=== PATIENT | female | born 1940 | race Caucasian/White ===

== ENCOUNTER 2016-04-26 13:25 | Inpatient (IN) | payer MEDICARE, OTHER ==
[~2016-04-26] VITALS: Ht 180.3 cm; Wt 83.4 kg
[~2016-04-26 13:25] MED LIST: METF-488 PO; METO25TA99 PO; NIAC500SA PO; VIT1CAPS23 PO; ZES10 PO
--- NOTE | 2016-04-26 13:34 | ED.REPORT ---
HPI-General Illness Date of Service Apr 26, 2016 ED Provider: Jewel Pacheco MD 76 year old female with a hx of DM, HTN and Afib presents to the ED weakness to the lower extremities. Today, the patient was too weak to transfer from her wheelchair to the toilet. Pt has been using a wheelchair due to L knee pain for 3 months. Pt has been given steroid shots with minimal improvement in sx. Her weakness was much more severe today. Pt is being seen at the wound center for a wound to her R foot. Pt denies CP, SOB, Fever, cough and vomiting. Pt denies any hx of Polymyalgia rheumatica and giant cell arteritis. Pt lives at home with her sister who is unable to assist with transferring. Nursing Notes Stated Complaint: WEAKNESS Nursing Notes Reviewed: Yes Allergies: Coded Allergies: Yjhysuh-Kxn-Ewd Reductase Inhibitor (Verified Allergy, Unknown, 12/21/13) meperidine HCl (Verified Allergy, Unknown, 12/21/13) Scheduled Lisinopril-Expunged Drug, Do Not Renew! (Lisinopril-Expunged Drug, Do Not Renew! ) 10 Mg Tablet 40 MG PO DAILY Metformin-Expunged Drug, Do Not Renew! (Metformin-Expunged Drug, Do Not Renew!) 1,000 Mg Tab.er.24 1,000 MG PO BID Metoprolol Succinate ER (Metoprolol Succinate ER) 25 Mg Tab.er.24h 25 MG PO BID NIACIN-Expunged Drug, Do Not Renew! (NiacinSR-Expunged Drug, Do Not Renew!) 500 Mg Tablet.sa 500 MG PO DAILY VIT C/VIT E ACETATE/LUTEIN/MIN-Expunged Drug, (OCUVITE LUTEIN-Expunged Drug, Do Not Renew!) 1 Each Capsule 1 EACH PO DAILY General Time Seen by MD: 13:33 Chief Complaint Weakness Hx Obtained From: Patient, EMS Arrived By: Ambulance Sudden in Onset?: No Onset Occurred: More than a week ago... Symptom Duration: Since onset Location: : Knee left: Knee right Quality: Painful Severity: Current: Severe Associated with: Reports: Weakness, Denies: Fever, Shortness of breath Past Medical History Past Medical History Reports: Cancer (skin), Diabetes mellitus, Hypertension Reports: Atrial fibrillation, Urinary tract infection Past Surgical History Skin cancer excision Hip Smoking History Never Smoker Social History Alcohol Use: Denies alcohol use Drug Use: Denies drug use Ambulatory Status Wheelchair Review of Systems Full Review of Systems Constitutional: Reports: Weakness - generalized, Denies: Chills, Fever Ears / Nose / Throat: Denies: Nasal congestion Respiratory: Denies: Non-productive cough, Shortness of breath Cardiovascular: Denies: Chest pain, Edema GI: Denies: Abdominal pain, Diarrhea, Vomiting Female: Denies: Dysuria Musculoskeletal: Reports: Joint pain Neurologic: Denies: Change LOC, Headache Complete sys rev & neg: except as marked. Physical Exam Vital Signs Vital Signs Date Time Temp Pulse Resp B/P Pulse Ox O2 Delivery O2 Flow Rate FiO2 04/26/16 17:40 36.8 58 20 138/57 100 Room Air 04/26/16 13:35 36.3 102 14 138/82 90 Room Air Initial VS: Reviewed Cardiovascular: No murmurs, Peripheral circulation NL Heart Rate / Rhythm: Positive: Irreg irregular rhythm, Tachycardia Lower Extremity / Pelvis / MS: Neurologic intact, Vascular intact Deformed knee bilat with bandages to bilat lower legs. Good ROM woth no redness or warmth to knees. Large open wound to the R medial lower leg with cellular debris, proud flesh and cellulitis above with warmth and erythema. -Ulcer to L achillis. No cellulitis but warmth around the wound. Interpretation & Diagnostics Lab Results Interpretation Result Diagram: 04/26/16 1450 04/26/16 1450 Test 04/26/16 13:45 04/26/16 14:50 04/26/16 16:00 Urine Color Yellow (YELLOW) Urine Appearance Clear (CLEAR,HAZY) Urine pH 5.5 (5.0-8.0) Urine Specific [place] 1.025 (1.003-1.035) Urine Protein 30mg/dL (NEG,TRACE) Urine Glucose (UA) 250mg/dL (NEGATIVE) Urine Ketones 15mg/dL (NEGATIVE) Urine Occult Blood Moderate (NEGATIVE) Urine Nitrite Negative (NEGATIVE) Urine Bilirubin Negative (NEGATIVE) Urine Urobilinogen Normalmg/dL (NORMAL) Urine Leukocyte Esterase Negative (NEGATIVE) Urine RBC 0-2/hpf (0-2) Urine WBC 0-5/hpf (0-5) Urine Epithelial Cells None/hpf (NONE-MOD) Urine Crystals Amorphous urates (NONE Urine Bacteria Few/hpf (NONE-FEW) Urine Hyaline Casts None/lpf (NONE) Urine Granular Casts None seen (NONE SEEN) Urine Waxy Casts None seen (NONE SEEN) Urine Red Blood Cell Casts None seen (NONE SEEN) Urine White Blood Cell Casts None seen (NONE SEEN) Urine Mucus Present (None Seen) Urine Trichomonas None seen (NONE SEEN) Urine Yeast None (NONE SEEN) Urinalysis Comment None Urine Culture Reflexed Not indicated White Blood Count 16.3th/mm3 (3.8-10.1) Red Blood Count 2.99mil/mm3 (3.90-5.20) Hemoglobin 8.5g/dL (12.0-15.6) Hematocrit 27.4% (35.0-46.0) Mean Corpuscular Volume 91.6fL (81-100) Mean Corpuscular Hemoglobin 28.4pg (27.0-35.0) Mean Corpuscular Hemoglobin Concent 31.0% (32.0-37.0) Red Cell Distribution Width 16.6% (12.3-15.4) Platelet Count 327bil/L (150-400) Neutrophils (%) (Auto) 91.6% (40-74) Lymphocytes (%) (Auto) 3.6% (14-46) Monocytes (%) (Auto) 4.2% (4-12) Eosinophils (%) (Auto) 0.1% (0-5) Basophils (%) (Auto) 0.2% (0-3) Erythrocyte Sedimentation Rate 66mm/hr (0-40) Sodium Level 140mEq/L (134-144) Potassium Level 5.2mEq/L (3.5-5.2) Chloride Level 107mEq/L (97-108) Carbon Dioxide Level 18mmol/L (18-29) Blood Urea Nitrogen 49mg/dL (8-27) Creatinine 1.16mg/dL (0.57-1.00) Estimat Glomerular Filtration Rate 65mL/min (>59) Glucose Level 322mg/dL (60-99) Calcium Level 9.4mg/dL (8.5-10.1) Total Bilirubin 0.5mg/dL (0.0-1.2) Aspartate Amino Transf (AST/SGOT) 15U/L (0-50) Alanine Aminotransferase (ALT/SGPT) 12U/L (0-32) Alkaline Phosphatase 65U/L (25-165) Total Protein 6.6g/dL (6.4-8.4) Albumin 3.2g/dL (3.4-5.0) Lactic Acid Level 1.4mmol/L (0.4-2.0) General Lab Results Interp 1: Labs reviewed X-Ray Chest Interpretation Chest Xray Interpretation: IMPRESSION: Cardiomegaly. No acute pulmonary findings. Dictated by: Inessa Beckman M.D. on 04/26/2016 at 14:39 View: Portable, 1 view Interpretation / Wet Read by: Interpret - Radiologist Re-Eval/Medical Decision Time of Eval: 15:34 Re-Evaluation/Progress Note: Pt updated of labs. Time of Eval: 17:00 Patient Status: Condition improved Re-Evaluation/Progress Note: Updated pt of labs and imaging results. Recommended admission. Pt understands and agrees with plan. All questions addressed. Consultation : Referral / Consult Name: Cleveland Mitchell MD Consulted With: Hospitalist Call Returned at: 17:28 Resident Care Aid: Will see patient, Agrees with eval, Agrees with plan, Accepts admit Counseled Regarding: Diagnosis, Lab results, Need for admission Discharge & Departure Primary Impression: Cellulitis Site of cellulitis: extremity Site of cellulitis of extremity: lower extremity Laterality: right Qualified Code: L03.115 - Cellulitis of right lower limb Additional Impression: Sepsis Sepsis type: sepsis due to unspecified organism Qualified Code: A41.9 - Sepsis, unspecified organism Disposition: ADMITTED TO HOSPITAL Discharge Condition All VS Reviewed: Yes Referrals: Evangelista Voss MD (PCP) Scribe Attestation Portions of this note were transcribed by Annabelle Marroquin. I, (Dr. Pacheco) personally performed the history, physical exam and medical decision-making; I reviewed and confirmed the accuracy of the information in the transcribed note. Signed by: Chavo Garcia 04/26/2016, [id number] copies to: Evangelista Voss MD, Kirk H MD Apr 26, 2016 13:34 Annabelle Marroquin Apr 26, 2016 13:41
[2016-04-26 13:35] VITALS: BP 138/82; PULSE 102; RESP 14; O2SAT 90
--- NOTE | 2016-04-26 14:41 | DRSVH ---
PROCEDURE: X-RAY CHEST ONE VIEW, PORTABLE ([id number]) INDICATIONS: weak TECHNIQUE: One view of the chest was acquired. COMPARISON: [facility], CT, ABD/PELVIS W/CON (PNL), 12/13/2012, 13:22. FINDINGS: Surgical changes and devices: None. Lungs and pleura: No pleural effusions or pneumothorax. Lungs are clear. Mediastinum: Mediastinal contours appear normal. There is dense calcification of the mitral valve. Heart size is mildly enlarged. Bones and chest wall: No suspicious bony lesions. Overlying soft tissues appear unremarkable. IMPRESSION: Cardiomegaly. No acute pulmonary findings. Dictated by: Inessa Beckman M.D. on 04/26/2016 at 14:39 Approved by: Inessa Beckman M.D. on 04/26/2016 at 14:39
[2016-04-26 15:06] LABS: APPEARANCE,URINE CLEAR (CLEAR,HAZY); COLOR,URINE YELLOW (YELLOW); OCCULT BLOOD,URINE MODERATE (NEGATIVE); PH,URINE 5.5 (5.0-8.0); UROBILINOGEN,URINE NORMAL (NORMAL)
[2016-04-26 15:14] LABS: BASOPHILS % (AUTO) 0.2 % (0-3); EOSINOPHILS % (AUTO) 0.1 % (0-5); MONOCYTES % (AUTO) 4.2 % (4-12); Mean Corpuscular Hemoglobin 28.4 pg (27.0-35.0); Mean Corpuscular Volume 91.6 fL (81-100); NEUTROPHILS % (AUTO) 91.6 % (40-74); Platelet Count 327 bil/L (150-400)
[2016-04-26 15:41] LABS: ERYTHROCYTE SEDIMENTATION RATE 66 mm/hr (0-40)
[2016-04-26] MEDS ORDERED: 0.9% Sodium Chloride 1,000 ML IV ONE (15:42)
[2016-04-26] MEDS ORDERED: Vancomycin Dose per Pharmacist XX ONE (16:35)
[2016-04-26] MEDS ORDERED: metroNIDAZOLE Inj 500 MG in IV Premix 1 EACH IV ONE (16:35)
[2016-04-26] MEDS ORDERED: Clindamycin Inj 900 MG in IV Premix 1 EACH IV ONE (16:35)
[2016-04-26] MEDS ORDERED: Vancomycin Inj 1,750 MG in Dextrose 5% 500 ML IV ONE (16:55)
[2016-04-26 17:40] VITALS: BP 138/57; PULSE 58; RESP 20; O2SAT 100
[2016-04-26] MEDS ORDERED: Polyethylene Glycol (PEG) 17 Gm Powder PO PRN (17:40)
[2016-04-26] MEDS ORDERED: Ondansetron 2 mg/mL 2 mL Inj IVPUSH PRN (17:40)
[2016-04-26 18:16] VITALS: BP 138/57; PULSE 58; RESP 20; O2SAT 100
--- NOTE | 2016-04-26 18:31 | PCM.HPMED ---
Subjective Date of Service Apr 26, 2016 Primary Provider: Admitting Physician: Cleveland Mitchell MD Primary Care Physician: Evangelista Voss MD Attending Physician: Cleveland Mitchell MD Admit Status: From the Emergency Department, 23-Hour Observation, Non-Telemetry Chief Complaint: Progressive weakness. Right leg wound infection. History of Present Illness: This is a pleasant 76-year-old female who presents with acute on chronic weakness. She was unable to get into the bathroom today. She got from the bed to her wheelchair but could not get from the wheelchair to the bathroom. She called medics. Ultimately she had to call in the second time. She notes that she has had progressive weakness for several weeks but today seems to cross the threshold. She was equally weak in both legs. No unilateral weakness or numbness. No difficulty speaking or other particular neurologic symptoms. She has had a chronic wound on the right pretibial region which she has been followed by wound clinic in [place]. She has had no fevers or chills. She does have increased redness around the wound today. There is some. She has had serial debridement and wound care. She also has an ulcer behind the left heel which is several weeks old but not read or getting worse. She denies fevers chills. No rhinorrhea cough or sore throat. No nausea vomiting or diarrhea. No shortness of breath. Review of Systems: No headache. No difficulty hearing or visual changes. She has chronic right eye blindness. No rhinorrhea. She denies orthopnea or pedal edema. No abdominal pain nausea vomiting. Normal appetite. Weight is stable. No anxiety or depression. No difficulty with urination or defecation. Also reviewed and otherwise negative except as noted in history of present illness. Allergies Coded Allergies: Tjvtfyw-Phj-Tqz Reductase Inhibitor (Verified Allergy, Unknown, 12/21/13) meperidine HCl (Verified Allergy, Unknown, 12/21/13) Home Medications Scheduled Lisinopril-Expunged Drug, Do Not Renew! (Lisinopril-Expunged Drug, Do Not Renew! ) 10 Mg Tablet 40 MG PO DAILY Metformin-Expunged Drug, Do Not Renew! (Metformin-Expunged Drug, Do Not Renew!) 1,000 Mg Tab.er.24 1,000 MG PO BID Metoprolol Succinate ER (Metoprolol Succinate ER) 25 Mg Tab.er.24h 25 MG PO BID NIACIN-Expunged Drug, Do Not Renew! (NiacinSR-Expunged Drug, Do Not Renew!) 500 Mg Tablet.sa 500 MG PO DAILY VIT C/VIT E ACETATE/LUTEIN/MIN-Expunged Drug, (OCUVITE LUTEIN-Expunged Drug, Do Not Renew!) 1 Each Capsule 1 EACH PO DAILY PMH 1. Essential hypertension. 2. Right leg wound being followed by wound care.. 3. Atrial fibrillation, on per DEXA. 4. Diabetes mellitus.2. 5. Lumbar spinal stenosis. 6. Right eye blindness. Family History Negative for diabetes Social History Hx Alcohol Use: No Hx Substance Use: No Smoking Status: Never Smoker Living Arrangement: with Family Exam Vital Signs Vital Sign - Last Date Time Temp Pulse Resp B/P Pulse Ox O2 Delivery O2 Flow Rate FiO2 04/26/16 18:16 36.8 58 20 138/57 100 Room Air Exam Alert oriented, no distress. Fluent speech. Normal skull. Normalexternal ears. Anicteric sclerae, symmetric pupils. Neck is supple, normal thyroid, no adenopathy Lungs are clear, normal effort. Heart is regular regular without murmur gallop or rub. Abdomen is soft nondistended focal tenderness guarding or rebound. Extremities are free of edema. Difficult to palpate pedal pulses. Normal cap refill in both feet. She has very large ulceration about 10 cm x 5 in the right holliday. There is some necrotic tissue there but no exposed bone. This is transcutaneous. The left heel has an ulceration about a centimeter in diameter over the Achilles heel. There is no associated redness. Joints are not swollen or deformed. Skin she does have surrounding erythema around the ulceration in the upper wound in the right holliday. Otherwise her skin is unremarkable My strength is 5 out of 5. No petechiae and ecchymosis or adenopathy is noted. Lab and Diagnostics Result Diagram: 04/26/16 1450 04/26/16 1450 Assessment & Plan 1. Probable cellulitis of the right lower extremity associated with a chronic ulcer which has some ongoing necrotic tissue and needs debridement. POA. We will swab the wound for culture and treat with empiric Zosyn. We will give 1 dose of vancomycin as well. We will also obtain wound care consult. 2. Diabetes mellitus 2. Will initially follow with before meals and bedtime blood sugars and cover with correctional lispro. 3. Essential hypertension. POA. Usual medications, follow clinically. 4. Atrial fibrillation, chronic. POA. Continue pradaxa Patient is admitted observation status with anticipated length of stay of one night. The patient is DO NOT RESUSCITATE this was confirmed with her personally today. Pain Evaluation: Adequate Pain Control Resuscitation Status: DNR/DNI:Do Not Resuscitate/Intubate Time spent 35 minutes Cleveland Mitchell MD Apr 26, 2016 18:31
--- NOTE | 2016-04-26 18:39 | NUR ---
Admission Patient arrived to floor with sister from ED at approx 1830. Multiple wounds noted to bilateral LE's and healing scab noted to left buttock (gluteal cleft). Oriented patient to room and hospital policies. Tele placed on patient. Afib with HR 110-140's. Continue frequent monitoring.
[2016-04-26 19:46] VITALS: BP 120/70; PULSE 91; RESP 20; O2SAT 99
[2016-04-26] MEDS: Piperacillin-Tazo 3.375 Gm Inj 3.375 GM in Dextrose 5% Minibag Plus 50 ML IV SCH (20:00)
[2016-04-26] MEDS ORDERED: CYAN100017 SL (20:44)
[2016-04-26] MEDS ORDERED: MV-M1TAB38 PO (20:44)
[2016-04-26] MEDS ORDERED: FERR325T6 PO (20:44)
[2016-04-26] MEDS ORDERED: Glucose 40% Oral Gel 15 Gm Tube PO PRN (20:55)
[2016-04-26] MEDS: MeTOProlol XL 25 mg ER24 Tablet PO SCH (22:10)
[2016-04-26] MEDS: Insulin LISPRO 300 Unit/3 mL Inj SUBQ SCH (22:10)
[2016-04-27] VITALS (7 sets, daily range): BP systolic 117–152; BP diastolic 69–84; PULSE 84–112; RESP 18–20; O2SAT 98–99
[2016-04-27] MEDS: HYDROcodone-APAP 5-325 mg Tablet PO PRN ×2 (01:11→21:41)
--- NOTE | 2016-04-27 05:14 | NUR ---
Wound dressing/Abx Pt denies episodes of chest pain, sob, n/v and abd discomfort. VSS, has been afebrile overnight. Pt have multiple wounds on bilateral LE. Cleaned pt's wound and provide wet-dry dressing to right leg with maceration and eschar formation. ABx administered as scheduled. Pt has been pleasant and cooperative with her care. Hourly rounding done and pt has slept most of the night. Addendum: 04/27/16 at 0615 by NADIA LARKIN RN 0610 pt had an episode of 6 beats v-tach. Assessed pt, denies chest pain or chest tightness.
[2016-04-27 06:43] LABS: BASOPHILS % (AUTO) 0.2 % (0-3); EOSINOPHILS % (AUTO) 1.1 % (0-5); MONOCYTES % (AUTO) 7.7 % (4-12); Mean Corpuscular Hemoglobin 27.9 pg (27.0-35.0); Mean Corpuscular Volume 90.6 fL (81-100); NEUTROPHILS % (AUTO) 82.7 % (40-74); Platelet Count 349 bil/L (150-400)
[2016-04-27] MEDS: Piperacillin-Tazo 3.375 Gm Inj 3.375 GM in Dextrose 5% Minibag Plus 50 ML IV SCH ×2 (08:17→20:27)
[2016-04-27] MEDS: MeTOProlol XL 25 mg ER24 Tablet PO SCH ×2 (08:17→20:27)
[2016-04-27] MEDS: Insulin LISPRO 300 Unit/3 mL Inj SUBQ SCH ×4 (08:31→21:41)
--- NOTE | 2016-04-27 10:31 | NUR ---
Case Management: OBS brochure provided and explained. CPerryRNCCM.
--- NOTE | 2016-04-27 16:02 | PCM.PNMED ---
Subjective Date of Service Apr 27, 2016 Subjective Patient reports continued weakness and fatigue. Pt denies any worsening of her symptoms, but does not note any improvement. Pt states that her lower extremity is very painful, and describes the pain as a burning, stinging sensation. Pt states that she has been seen at [facility] Exam Vital Signs Vital Sign - Last Date Time Temp Pulse Resp B/P Pulse Ox O2 Delivery O2 Flow Rate FiO2 04/27/16 13:55 94 04/27/16 13:28 37.6 18 117/75 99 Room Air Intake and Output 04/26/16 04/26/16 04/27/16 Cumulative From/Thru 15:00 23:00 07:00 04/26/16 13:35 - 04/27/16 02:08 Intake Total 120 ml 673 ml 793 ml Output Total 1 ml 1 ml Balance 119 ml 673 ml 792 ml Intake Oral 120 ml 120 ml IV Total 673 ml 673 ml Output Urine Total 1 ml 1 ml Exam General: No acute distress, well-developed, well-nourished, appropriately interactive HEENT: Normocephalic, atraumatic. Pupils equal, round, and reactive to light and accommodation. Anicteric sclerae, moist conjunctivae. Oropharynx with moist mucosa.Poor dentition Neck: Supple with full range of motion.No lymphadenopathy Cardiovascular: Regular rate and rhythm with no murmurs, rubs, or gallops appreciated Pulmonary: Clear to auscultation bilaterally with no crackles, wheezes, or rhonchi. Normal respiratory effort with no use of accessory muscles. Abdomen: Bowel tones present. Soft, nontender, nondistended. Extremities: Right anterior holliday with large area of ulceration, erythema and area of eschar.Wound is dry with no discharge or purulence. Area of erythema, tenderness to palpation and warmth on right lower extremity up to knee. Left heel with ulceration as well. Psychiatric: Normal mood and affect. Alert and oriented to person, place, and time. IVs and Medications Medications Reviewed: Medications were reviewed in detail Lab and Diagnostics Result Diagram: 04/27/1660504/27/16605 Assessment & Plan 76-year-old female who presented with chronic weakness found to have right lower extremity wounds and cellulitis Probable acute cellulitis of the right lower extremity associated with a chronic ulcer, present on admission, ongoing -Wound care has been consulted, pt is seen at [facility] in outpatient setting. -We have requested records from [facility] for microbiology and information regarding vasculature work up -No wound culture taken, as there is no discharge or purulence -Treating with Zosyn, and already received single dose of Vancomycin-not continuing this currently. Diabetes mellitus 2,present on admission, chronic and presumed stable. -Daily blood sugars -Low dose correction with Lispro -Continue to monitor -Diabetic diet Will initially follow with a CHF blood sugars in traction lispro. Essential hypertension,chronic, presumed stable. -Continue home medications -Continue to monitor. Atrial fibrillation, chronic, stable, present on admission -Continue with home dose of Pradaxa CODE STATUS DNR/DNI Resuscitation Status: DNR/DNI:Do Not Resuscitate/Intubate Time spent 25 minutes Attending Statement Patient seen and examined with resident. Agree with all attached documentation. Maritza Alcantara DO Apr 27, 2016 14:33 Cleveland Mitchell MD Apr 27, 2016 17:27
--- NOTE | 2016-04-27 17:15 | NUR ---
Wound Care Wound Evaluation orders received, pt seen at bedside. 76 year old female with a hx of DM, HTN and Afib presents to the ED weakness to the lower extremities. Admitted with cellulitis of right leg. Observation of right leg reveals erythema to below the knee, (this is outlined today). A dry medial calf ulcer 10 cm x 8 cm without drainage, wound bed nonviable dark chapman to yellowish tissue, no undermining or tunneling. Wound is cleaned but too dry to be worth culturing today. Foot is warm and capillary refill is diminished, Doppler of both feet reveal significantly diminished pulses at DP and [employer]ELOP[employer]. Lateral to this medial ulcer is a small lateral ulcer, 2 cm x 3 cm, it neither drains or tunnels or undermines. Both of these ulcers were treated with Calmoseptine to protect periwound skin, hydrogel, Aquacel Ag moist with saline, 4 x 4 gauze, Kerlix and surgilast. Left lateral inferior ankle presents with a chronic appearing ulcer 3 cm in diameter with rolled edges and a base of chapman slough, this wound was dressed identically to the right lower leg ulcers. My concern is that this may be a mixed etiology Venous/arterial wound, patient believes she has had studies at [facility] followed by Dr Layo Lopes of surgery there. I will recheck on this patient 04/28/16 and if wound base is improved can culture it at that time if necessary.
--- NOTE | 2016-04-27 21:05 | NUR ---
wound dressings patient has wound to right lower holliday medially. patient has been seeing wound care at [place] for same prior to admission. wound bed dry with eschar, redness around wound bed extending up calf with mild swelling. distal pulse palpable, but very weak. left lateral heel has a open wound, wound bed dry. distal pulses palpable but weak. sacrum red, skin intact but dry and flaky. History of prior pressure ulcer, per patient report. Wound consult following. patient denies pain or discomfort at would sites today. Q2 hour turning, encourage frequent position changes, pillows to float heels. continue to monitor.
[2016-04-28 05:17] VITALS: BP 134/91; PULSE 102; RESP 18; O2SAT 97
--- NOTE | 2016-04-28 06:00 | NUR ---
Leg pain Pt is alert and oriented, pleasant and cooperative with care but has been complaining of leg pain upon received by previous RN. Upon report, pt just received PRN pain meds. Instruct pt to wait for the meds to take effect. Pt verbalizes understanding and states that "it's starting to feel better now". Pt denies episodes of chest pain, sob, n/v and abd discomfort. Hourly rounding done and pt has slept most of the night. Addendum: 04/28/16 at 0649 by NADIA LARKIN RN MD notified of H&H levels. No new orders. Will pass on to next shift.
[2016-04-28 06:25] LABS: BASOPHILS % (AUTO) 0.2 % (0-3); MONOCYTES % (AUTO) 10.3 % (4-12); Mean Corpuscular Hemoglobin 28.1 pg (27.0-35.0); Mean Corpuscular Volume 90.8 fL (81-100); Platelet Count 335 bil/L (150-400)
[2016-04-28] MEDS: MeTOProlol XL 25 mg ER24 Tablet PO SCH ×2 (08:17→21:17)
[2016-04-28] MEDS: Insulin LISPRO 300 Unit/3 mL Inj SUBQ SCH ×4 (08:17→21:37)
[2016-04-28] MEDS: Piperacillin-Tazo 3.375 Gm Inj 3.375 GM in Dextrose 5% Minibag Plus 50 ML IV SCH ×2 (08:18→21:17)
--- NOTE | 2016-04-28 10:44 | NUR ---
Case Management: IMM explained, pt signed, placed in chart today at 10:20am. CperryRNCCM>
--- NOTE | 2016-04-28 10:51 | NUR ---
Social Work: Initial Assessment Data: Pt is a 76 y/o female admitted for cellulitis, sepsis. Pt's PCP is Dr Voss, pt's insurance is Medicare with [employer] dem[employer] supp. EMR reviewed. NARROW FABRIC LOOM FIXER met with pt at bedside, role explained. Pt states that she lives with her sister who is 2 years older than her in a single story home with a wheelchair ramp to enter. Pt states that her nephew listed at [facility] is also her DPOA and a good support to contact if needed. NARROW FABRIC LOOM FIXER requested a copy of DPOA paperwork for hospital. Pt states she does not drive, has no history with HH, has been to [facility] twice, and has no LTC or VA benefits. Pt is not a caregiver for another. NARROW FABRIC LOOM FIXER left SNF/HH choice list with pt. NARROW FABRIC LOOM FIXER text paged hospitalist requesting PT evaluation for pt if appropriate. NARROW FABRIC LOOM FIXER will continue to follow. Assessment: Pt who is independent at baseline. Pt in wheelchair at baseline. Plan: Pt will likely d/c home via POV with sister, JESSICA to R/O possible HH or SNF needs. JESSICA Callaway Addendum: 04/28/16 at 1054 by ALINE HIDALGO Amended: Links added.
--- NOTE | 2016-04-28 15:19 | PCM.PNMED ---
Subjective Date of Service Apr 28, 2016 Subjective Patient reports that she continues to feel very weak. Pt reports that 1 wk ago, she was able to ambulate with her walker, and was able to move in and out of bed. Pt reports that today she feels too weak. She reports she became significantly fatigued just sitting up on the side of the bed. Pt reports that her leg continues to cause her pain, however she does note improvement of her symptoms with the pain medication. Pt denies any fevers, chills, myalgias, shortness of breath or dysuria overnight. Exam Vital Signs Vital Sign - Last Date Time Temp Pulse Resp B/P Pulse Ox O2 Delivery O2 Flow Rate FiO2 04/28/16 05:17 36.9 102 18 134/91 97 Room Air Intake and Output 04/27/16 04/27/16 04/28/16 Cumulative From/Thru 15:00 23:00 07:00 04/26/16 13:35 - 04/28/16 05:16 Intake Total 100 ml 787 ml 500 ml 2180 ml Output Total 700 ml 75 ml 776 ml Balance -600 ml 712 ml 500 ml 1404 ml Intake Oral 100 ml 737 ml 500 ml 1457 ml IV Total 50 ml 723 ml Output Urine Total 700 ml 75 ml 776 ml # Voids 2 3 5 # Bowel Movements 1 0 1 Exam General: No acute distress, well-developed, well-nourished, appropriately interactive HEENT: Normocephalic, atraumatic. Pupils equal, round, and reactive to light and accommodation. Anicteric sclerae, moist conjunctivae. Oropharynx with moist mucosa.Poor dentition Neck: Supple with full range of motion.No lymphadenopathy Cardiovascular: Regular rate and rhythm with no murmurs, rubs, or gallops appreciated Pulmonary: Clear to auscultation bilaterally with no crackles, wheezes, or rhonchi. Normal respiratory effort with no use of accessory muscles. Abdomen: Bowel tones present. Soft, nontender, nondistended. Extremities: Right anterior holliday with large area of ulceration, erythema and area of eschar.Wound is dry with no discharge or purulence. Area of erythema, tenderness to palpation and warmth on right lower extremity up to knee. Left heel with ulceration as well. Psychiatric: Normal mood and affect. Alert and oriented to person, place, and time. IVs and Medications Medications Reviewed: Medications were reviewed in detail Lab and Diagnostics Result Diagram: 04/28/16 0545 04/28/16 0545 Microbiology Microbiology 04/26/16 Blood Culture - Preliminary, Resulted Positive Blood Culture Microbiology AGNELES CULTURE BLOOD Preliminary 04/28/16-0639 Organism 1 POSITIVE BLOOD CULTURE GRAM STAIN RESULT GRAM POSITIVE COCCI ?STAPH BC BOTTLE Isolated from Anaerobic Bottle of Set Drawn DATE CALLED: 04/27/16 TIME CALLED: 2008 CALLED BY: NOAH FLOOR/DOCTOR: ELEN PEREZ READ BACK YES TYPE OF DRAW PERIPHERAL DRAW TIME OF POSITIVITY 1934 STAPH, PROBABLE COAGULASE NEG ID pending ISOLATED FROM ONE OF FOUR BOTTLES COLLECTED 04/26 X-Rays, CTs and MRIs PROCEDURE: X-RAY CHEST ONE VIEW, PORTABLE FINDINGS: Surgical changes and devices: None. Lungs and pleura: No pleural effusions or pneumothorax. Lungs are clear. Mediastinum: Mediastinal contours appear normal. There is dense calcification of the mitral valve. Heart size is mildly enlarged. Bones and chest wall: No suspicious bony lesions. Overlying soft tissues appear unremarkable. IMPRESSION: Cardiomegaly. No acute pulmonary findings. Dictated by: Inessa Beckman M.D. on 04/26/2016 at 14:39 Approved by: Inessa Beckman M.D. on 04/26/2016 at 14:39 Assessment & Plan 76-year-old female who presented with chronic weakness found to have lower extremity wounds and cellulitis of the right lower extremity Probable acute cellulitis of the right lower extremity associated with a chronic ulcer, present on admission, ongoing -Pt is seen at [facility] in outpatient setting--Some records available and demonstrate positive wound culture of serratia liquefaciens 2015 -Wound care consulted, new dressing applied -No wound culture taken, as there is no discharge or purulence, if this changes , we will culture wound -Treating with Zosyn, and already received single dose of Vancomycin-not continuing this currently. -Blood cultures ( 1 of 4 bottles) growing gram positive cocci,coagulase negative. -Pt continues to have leukocytosis --WBC 14.3 -MRSA screen ordered Weakness, present on admission, ongoing -Pt reports she uses a walker at baseline, and can attend to her activities of daily living without assistance. -Physical therapy evaluation ordered -Continue to monitor -Pt will likely need Home Health Physical Therapy or Outpatient Physical Therapy Diabetes mellitus 2,present on admission, chronic and presumed stable. -Daily blood sugars -Low dose correction with Lispro -Continue to monitor -Diabetic diet Essential hypertension,chronic, presumed stable. -Continue home medications -Continue to monitor. Atrial fibrillation, chronic, stable, present on admission -Continue with home dose of Pradaxa Elevated creatinine, chronicity unknown, present on admission, ongoing -Will continue to monitor labs daily. Resuscitation Status: DNR/DNI:Do Not Resuscitate/Intubate Disposition: 1-2 days home with home health Pain Evaluation: Adequate Pain Control Resuscitation Status: DNR/DNI:Do Not Resuscitate/Intubate Attending Statement I reviewed this patients chart, discussed the plan of care with the resident and examined the patient. I agree with the above physical exam and assessment and plan. Maritza Alcantara DO Apr 28, 2016 14:11 Ayush Marroquin DO Apr 28, 2016 17:40
[2016-04-28 16:13] VITALS: BP 134/76; PULSE 85; RESP 18; O2SAT 100
--- NOTE | 2016-04-28 17:22 | NUR ---
Wound Care Patient seen for wound care and assessment today. Erythema decreased at right lower leg today. Able to debride wounds at bedside with #10 scalpel today. Wound at right medial leg cultured with swab after cleaning today. Redressed all wounds with Medihoney to assist debridement autolytically, 4x4 gauze and kerlix wrap and surgilast. Pt tolerated treatment very well. Will recheck on this patient 04/29.
--- NOTE | 2016-04-28 18:00 | NUR ---
Cellulitis Bilateral wraps on LEs. Pain tolerable and reducing to 0/10 this shift. elevated when in bed. Sitting upright on EOB for meals. Using bedpan to reduce pressure on bandaged feet. Pt reports comfort and is making needs known using call light.
[2016-04-28 21:16] VITALS: BP 122/67; PULSE 79; RESP 18; O2SAT 96
[2016-04-29 05:22] VITALS: BP 129/77; PULSE 108; RESP 18; O2SAT 96
[2016-04-29 07:01] LABS: BASOPHILS % (AUTO) 0.3 % (0-3); EOSINOPHILS % (AUTO) 1.2 % (0-5); MONOCYTES % (AUTO) 9.1 % (4-12); Mean Corpuscular Hemoglobin 27.9 pg (27.0-35.0); Mean Corpuscular Volume 89.8 fL (81-100); NEUTROPHILS % (AUTO) 79.2 % (40-74); Platelet Count 336 bil/L (150-400)
[2016-04-29] MEDS: Insulin LISPRO 300 Unit/3 mL Inj SUBQ SCH ×4 (08:00→21:13)
[2016-04-29] MEDS: Piperacillin-Tazo 3.375 Gm Inj 3.375 GM in Dextrose 5% Minibag Plus 50 ML IV SCH ×2 (08:02→20:58)
[2016-04-29] MEDS: MeTOProlol XL 25 mg ER24 Tablet PO SCH ×2 (08:03→20:57)
[2016-04-29 11:14] VITALS: BP 126/64; PULSE 98; RESP 18; O2SAT 96
--- NOTE | 2016-04-29 13:02 | PCM.PNMED ---
Subjective Date of Service Apr 29, 2016 Subjective Patient reports that overall she is feeling better. She reports that last night she was able to get a good night sleep. She also reports that the pain in her legs is well controlled with the current medications. Pt reports that she continues to feel weak, and has not even been able to get up to the bathroom. Pt reports that she has been tolerating her diet well. Pt denies any nausea, vomiting, diarrhea, abdominal pain, shortness of breath, cough, fevers, chills or myalgias. Pt reports that she was constipated, but had a bowel movement earlier this morning. Exam Vital Signs Vital Sign - Last Date Time Temp Pulse Resp B/P Pulse Ox O2 Delivery O2 Flow Rate FiO2 04/29/16 11:14 36.9 98 18 126/64 96 Room Air Intake and Output 04/28/16 04/28/16 04/29/16 Cumulative From/Thru 15:00 23:00 07:00 04/26/16 13:35 - 04/29/16 01:00 Intake Total 1160 ml 4340 ml Output Total 200 ml 976 ml Balance 960 ml 3364 ml Intake Oral 1100 ml 2557 ml IV Total 60 ml 1783 ml Output Urine Total 200 ml 976 ml # Voids 2 7 # Bowel Movements 0 1 Exam General: No acute distress, well-developed, well-nourished, appropriately interactive HEENT: Normocephalic, atraumatic. Pupils equal, round, and reactive to light and accommodation. Anicteric sclerae, moist conjunctivae. Oropharynx with moist mucosa.Poor dentition Neck: Supple with full range of motion.No lymphadenopathy Cardiovascular: Regular rate and rhythm with no murmurs, rubs, or gallops appreciated Pulmonary: Clear to auscultation bilaterally with no crackles, wheezes, or rhonchi. Normal respiratory effort with no use of accessory muscles. Abdomen: Bowel tones present. Soft, nontender, nondistended. Extremities: Area of erythema, tenderness to palpation and warmth on right lower extremity up to knee. Bilateral legs are wrapped -- these were not completely removed for physical exam. On previous exam pt had right anterior holliday with large area of ulceration, erythema and area of eschar.Wound without discharge or purulence. Left heel with ulceration as well. Psychiatric: Normal mood and affect. Alert and oriented to person, place, and time. IVs and Medications Medications Reviewed: Medications were reviewed in detail Lab and Diagnostics Result Diagram: 04/29/1662704/29/16627 Microbiology Microbiology 04/26/16 Blood Culture - Preliminary, Resulted Positive Blood Culture Microbiology ANGELES CULTURE BLOOD Preliminary 04/28/16-0639 Organism 1 POSITIVE BLOOD CULTURE GRAM STAIN RESULT GRAM POSITIVE COCCI ?STAPH BC BOTTLE Isolated from Anaerobic Bottle of Set Drawn DATE CALLED: 04/27/16 TIME CALLED: 2008 CALLED BY: NOAH FLOOR/DOCTOR: ELEN PEREZ READ BACK YES TYPE OF DRAW PERIPHERAL DRAW TIME OF POSITIVITY 1934 STAPH, PROBABLE COAGULASE NEG ID pending ISOLATED FROM ONE OF FOUR BOTTLES COLLECTED 04/26 X-Rays, CTs and MRIs PROCEDURE: X-RAY CHEST ONE VIEW, PORTABLE FINDINGS: Surgical changes and devices: None. Lungs and pleura: No pleural effusions or pneumothorax. Lungs are clear. Mediastinum: Mediastinal contours appear normal. There is dense calcification of the mitral valve. Heart size is mildly enlarged. Bones and chest wall: No suspicious bony lesions. Overlying soft tissues appear unremarkable. IMPRESSION: Cardiomegaly. No acute pulmonary findings. Dictated by: Inessa Beckman M.D. on 04/26/2016 at 14:39 Approved by: Inessa Beckman M.D. on 04/26/2016 at 14:39 Assessment & Plan 76-year-old female who presented with chronic weakness found to have lower extremity wounds and cellulitis of the right lower extremity Probable acute cellulitis of the right lower extremity associated with a chronic ulcer, present on admission, ongoing -Pt is seen at [facility] in outpatient setting--Some records available and demonstrate positive wound culture of serratia liquefaciens 2015 -Wound care seeing pt--- debrided on 04/28, wound culture pending -Treating with Zosyn, day #4 -Blood cultures ( 1 of 4 bottles) growing gram positive cocci,coagulase negative. -Repeat blood cultures ordered -Pt continues to have leukocytosis --WBC 15.3 -MRSA screen pending Weakness, present on admission, ongoing -Pt reports she uses a walker at baseline, and can attend to her activities of daily living without assistance. -Physical therapy evaluation ordered -Continue to monitor -Pt will likely need Home Health Physical Therapy or Outpatient Physical Therapy Diabetes mellitus 2,present on admission, chronic and presumed stable. -Daily blood sugars -Low dose correction with Lispro -Continue to monitor -Diabetic diet Essential hypertension,chronic, presumed stable. -Continue home medications -Continue to monitor. Atrial fibrillation, chronic, stable, present on admission -Continue with home dose of Pradaxa Elevated creatinine, chronicity unknown, present on admission, ongoing -Will continue to monitor labs daily. Resuscitation Status: DNR/DNI:Do Not Resuscitate/Intubate Disposition: 1-2 days home with home health Pain Evaluation: Adequate Pain Control Resuscitation Status: DNR/DNI:Do Not Resuscitate/Intubate Attending Statement I reviewed this patients chart, discussed the plan of care with the resident and examined the patient. I agree with the above physical exam and assessment and plan. Maritza Alcantara DO Apr 29, 2016 11:45 Ayush Marroquin DO Apr 29, 2016 17:14
--- NOTE | 2016-04-29 13:34 | NUR ---
Evaluation completed. Please go to "Notes" then click on "Assessments and Notes" (bottom left corner of screen). Then select appropriate discipline tab on top of screen.
[2016-04-29 14:38] VITALS: BP 118/69; PULSE 84; RESP 17; O2SAT 96
[2016-04-29 17:18] VITALS: BP 129/81; PULSE 81; RESP 18; O2SAT 96
--- NOTE | 2016-04-29 17:42 | NUR ---
Wound Care Pt reports she slept through the night without wound pain for the first time last night. All wounds at right and left lower leg are cleaned with a # 10 blade today after application of topical 4% lidocaine. Wounds redressed with hydrogel mixed with Medihoney, covered with telfa, 4x4 gauze, Kerlix wrap and surgilast. Will benefit from follow up at wound center on discharge. Will recheck this patient 04/30/16.
--- NOTE | 2016-04-29 18:08 | NUR ---
Temp and B/P: Patients temp spiked to 100 F this evening. And her B/P increased to 182/95. MD was notified. PO Tylenol was given PRN. Per MD B/C were ordered. Patient has been confused and having s/s of delirium rambling with her speech and not making sense. Addendum: 04/29/16 at 1821 by JEFFERY ARMSTRONG RN Wrong Patient: The above note was meant for another patient.
[2016-04-29 20:53] VITALS: BP 124/74; PULSE 71; RESP 19; O2SAT 96
[2016-04-30 05:05] VITALS: BP 140/79; PULSE 86; RESP 18; O2SAT 98
--- NOTE | 2016-04-30 05:32 | NUR ---
Note Pt alert and oriented x3. She denies any leg pain/discomfort. Bilateral lower leg dressing CDI. Pt able to turn side to side. She just needs reminder and minimal assist. Pt had several soft and loose bm per bedpan.
[2016-04-30 07:07] LABS: BASOPHILS % (AUTO) 0.2 % (0-3); EOSINOPHILS % (AUTO) 1.2 % (0-5); MONOCYTES % (AUTO) 8.4 % (4-12); Mean Corpuscular Hemoglobin 28.3 pg (27.0-35.0); Mean Corpuscular Volume 90.1 fL (81-100); NEUTROPHILS % (AUTO) 81.4 % (40-74); Platelet Count 341 bil/L (150-400)
[2016-04-30] MEDS: Insulin LISPRO 300 Unit/3 mL Inj SUBQ SCH ×4 (09:14→20:08)
[2016-04-30] MEDS: Piperacillin-Tazo 3.375 Gm Inj 3.375 GM in Dextrose 5% Minibag Plus 50 ML IV SCH (09:15)
[2016-04-30] MEDS: MeTOProlol XL 25 mg ER24 Tablet PO SCH ×2 (09:17→20:08)
--- NOTE | 2016-04-30 10:51 | NUR ---
faxed referral to [facility] and [facility] per [employer]. updated [employer]
--- NOTE | 2016-04-30 11:19 | NUR ---
Social Work: Continued d/c planning Data: Pt is on day 4 of hospitalization. EMR reviewed. [employer] WORK[employer] heard back from [facility] and [facility], both can accept pt when she is ready for d/c. WASHTUB WORKER HELPER spoke with who states pt will not be ready for d/c today. WASHTUB WORKER HELPER will continue to follow. Assessment: Pt who is independent at baseline. Plan: Pt will d/c to SNF, [facility] ([facility] choice) and [facility] (2nd choice) both accepted. WASHTUB WORKER HELPER will continue to follow. JESSICA Callaway
[2016-04-30 14:21] VITALS: BP 140/75; PULSE 95; RESP 18; O2SAT 98
--- NOTE | 2016-04-30 15:22 | CONS ---
[address] [address] CONSULTATION REPORT PATIENT: JESSE ESPARZA : 1940 MR#: [id number] ADMIT: 04/28/2016 JOB ID: [id number] DATE OF SERVICE: 04/30/2016 INFECTIOUS DISEASE CONSULTATION: I thank Dr. Alcantara for this timely consult. REASON FOR CONSULT: Chronic right lower extremity ulcer. HISTORY OF THE PRESENT ILLNESS: The patient is a 76-year-old woman who is quite debilitated but is able to get around using a wheelchair and lives at home with her elderly and also quite debilitated sister. She has underlying diabetes, AFib, hypertension and spinal stenosis. She underwent surgery for the spinal stenosis a couple years ago. She was in her usual state of health until about two and half months ago when she noticed an ulcer along the medial side of her right lower extremity below the knee. This ulcerative lesion was quite painful and gradually enlarged. She sought evaluation through her primary doctor and was referred to Dr. Lopes of the [facility]. Dr. Lopes has debrided the wound and performed a variety of studies including MRA which was normal and biopsies which were nondiagnostic. When last seen by Dr. Lopes about 10 days ago, he continued to be unsure of the diagnosis but thought it might be Coumadin related skin necrosis, pyoderma gangrenosum, vasculitis or calciphylaxis. The wound had not improved with antibiotics nor did it improve with a trial of steroids. At the time of the last visit [address] Lopes, he prescribed continued topical therapies and was considering a repeat biopsy or additional steroids. He felt that if renal failure was developing that calciphylaxis could be part of the diagnosis. Since her last visit with Dr. Lopes 10 days or so ago, the patient has had additional problems with her right lower extremity. She reports that on April 26, four days ago, she had a lot of trouble getting from her wheelchair onto the toilet and fell. Paramedics came and helped her back to bed. A few hours later this was repeated when she once again tried to go from the wheelchair to the toilet and was so weak she could not accomplish anything. Because of that, she decided she should come to the hospital and she was brought here and admitted. The patient notes that this progressive weakness has been going on for months or years but seems to be speeding up and it is becoming more and more difficult for her to get around. She has bilateral leg weakness and also has pain around the rather large right lower extremity ulcer mentioned above. She has not had, however, any recent fevers, chills or sweats. She has had no particular pulmonary symptoms or GI complaints. She has not recently been on antibiotics. In reviewing the extensive notes made available to us by Ethan Davis, it is notable that she had an isolative Serratia bacteria about five weeks ago which was isolated from this wound. That Serratia was intermediate to Zosyn as well as strangely imipenem but sensitive to the other carbapenems and quinolones. This case was discussed at the bedside with Abad of Wound Care. He has been working on this wound during her four days here in the hospital now and is currently applying a honey based debriding gel. PAST MEDICAL HISTORY: 1. Diabetes mellitus. 2. Chronic AFib. 3. Hypertension. 4. Chronic right leg wound as described above. 5. 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 SOCIAL HISTORY: The patient is a lifelong nonsmoker, nondrinker, lives with her sister. FAMILY HISTORY: Negative for diabetes and TB. REVIEW OF SYSTEMS: Was done. The patient has no significant headache. She is blind in her right eye but has been for years. Left eye vision okay. No sore throat. No significant cough, shortness of breath or chest pain. No nausea, vomiting, diarrhea or dysuria. She is very weak in her lower extremities and that is what actually led to this admission. She also notes she has pain in the right lower extremity where the ulcer is present. PHYSICAL EXAMINATION: Reveals an afebrile woman. Temperature 36.9. Pulse 95, respiratory rate 18, blood pressure 140/75. She is awake, alert, pleasant and very interactive. She is saturating well on room air and in no acute distress. Head without trauma. Eyes without conjunctivitis. Nose normal. Oral cavity: No thrush or hairy leukoplakia. Neck: Supple. Lungs: Fairly clear. Cardiac tones: Irregular rate and rhythm without notable murmur. Abdomen: Soft and nontender. No Selby catheter is present. Upper extremities without synovitis, cellulitis or edema. The left lower extremity is basically normal except it has somewhat decreased peripheral pulses. Capillary refill about 2 seconds. Right lower extremity has a palpable dorsal pedal pulse. Capillary refill also about 2 seconds. The feet are without any lesions. The right inner calf area though has an extensive about 12-14 cm in length shallow chronic ulcerative lesion. There is some degree of surrounding cellulitis but Abad from Wound Care tells us that the cellulitic area has actually been decreasing over the past three or four days while she has been here in the hospital. The patient is neurologically intact, but quite weak in her lower extremities. There is no purulence arising from the wound and Abad tells us that he did a wound culture a couple days ago after he loosened up the eschar that had been overlying this lesion and that a small amount of thin fluid had been sent to the lab for culture. LABORATORIES: Include a white count which has been basically 14,000 +/- 1000 during her five days here in the hospital. The differential shows a consistent but mild polymorphonuclear predominance at about 80%. Creatinine 1.11. LFTs normal. Procalcitonin 0.3. Urinalysis without white cells. Micro studies include one of four blood cultures which grew coag-negative Staph, which was likely a contaminant. Respiratory viral panel negative. MRSA screen negative. The culture of the ulcer collected by Abad is growing a light growth of a gram-negative maureen which has not yet been identified, but which could be Serratia. Blood cultures are negative. IMAGING: Here includes a chest x-ray, which is basically negative except for cardiomegaly. The MRA as noted from [facility] showed no significant arterial occlusion. IMPRESSION: This patient's right lower extremity may have some degree of superficial or secondary infection but that is obviously not the main problem. For almost 10 weeks now, the patient has had a progressive ulcer of the right lower extremity which we know is not vascular given her good arterial supply. It may be that this is partially a venous ulcer and I agree with Dr. Lopes and Abad of Wound Care that this could be an ulcer caused by multiple mechanisms. Other possibilities here might include vasculitis, pyoderma gangrenosum, or Coumadin- induced necrosis though this gets less likely as the time since she stopped Coumadin increases. At this point, the patient is being treated with Zosyn which I think is probably not the best choice given that we know her Serratia was more or less resistant. Again I do not think that a bacterial infection is the main part what is going on here, but certainly we need to resolve any contribution to this process that is being made by pyogenic organisms. RECOMMENDATIONS: 1. Will go ahead and discontinue the Zosyn. 2. I would instead treat the patient with ertapenem as the isolate from [place] last month was susceptible to ertapenem. 3. We might consider using Cipro in our therapy depending on the identification and susceptibilities we are going to be obtaining tomorrow from the isolated organism from the leg ulcer here. 4. This case discussed in great detail at the bedside with Abad. ID will continue to follow with you.
[2016-04-30 16:24] VITALS: BP 129/74; PULSE 94; RESP 19; O2SAT 99
--- NOTE | 2016-04-30 18:00 | NUR ---
Wound Care Wounds at right leg and left heel continue to have medihoney placed as an aid to autolytic debridement. Wounds are improving in quality of wound bed tissue, Pt seen by Dr Marquez during treatment today. Recommend dressings be changed at legs every 48 hrs by nursing, fan and wound gel to ulcer beds cover with telfa, abd pad and kerlix wrap followed by surgilast. If discharged before wound care see's pt again recommend same dressing regiment at SNF and follow up at wound center.
--- NOTE | 2016-04-30 18:09 | PCM.PNMED ---
Subjective Date of Service Apr 30, 2016 Subjective Pt reports that she is doing about the same today. She reports that her legs have been less painful over night. Pt states that she is still experiencing a burning/stinging sensation in her leg. Pt denies any overnight events. She denies any fevers, chills, nausea, vomiting, diarrhea or abdominal pain. Pt reports that she has been tolerating her diet without issue. Pt reports that she is willing to go to a SNF following her hospitalization in order to gain strength. She states she does not want to be burden on her sister, with whom she lives. Exam Vital Signs Vital Sign - Last Date Time Temp Pulse Resp B/P Pulse Ox O2 Delivery O2 Flow Rate FiO2 04/30/16 05:05 36.8 86 18 140/79 98 Room Air Intake and Output 04/29/16 04/29/16 04/30/16 Cumulative From/Thru 15:00 23:00 07:00 04/26/16 13:35 - 04/30/16 06:41 Intake Total 400 ml 600 ml 650 ml 5990 ml Output Total 400 ml 100 ml 1476 ml Balance 0 ml 600 ml 550 ml 4514 ml Intake Oral 400 ml 600 ml 600 ml 4157 ml IV Total 50 ml 1833 ml Output Urine Total 400 ml 100 ml 1476 ml # Voids 2 2 2 13 # Bowel Movements 2 2 5 Exam General: No acute distress, well-developed, well-nourished, appropriately interactive HEENT: Normocephalic, atraumatic. Pupils equal, round, and reactive to light and accommodation. Anicteric sclerae, moist conjunctivae. Oropharynx with moist mucosa.Poor dentition Neck: Supple with full range of motion.No lymphadenopathy Cardiovascular: Regular rate and rhythm with no murmurs, rubs, or gallops appreciated Pulmonary: Clear to auscultation bilaterally with no crackles, wheezes, or rhonchi. Normal respiratory effort with no use of accessory muscles. Abdomen: Bowel tones present. Soft, nontender, nondistended. Extremities: Area of erythema, tenderness to palpation and warmth on right lower extremity up to knee--has not increased,but does not seem to be receding either. Bilateral legs are wrapped -- these were not completely removed for physical exam. On previous exam pt had right anterior holliday with large area of ulceration, erythema and area of eschar.Wound without discharge or purulence. Left heel with ulceration as well. Psychiatric: Normal mood and affect. Alert and oriented to person, place, and time. IVs and Medications Medications Reviewed: Medications were reviewed in detail Lab and Diagnostics Result Diagram: 04/30/1662904/30/16629 Microbiology Microbiology 04/26/16 Blood Culture - Preliminary, Resulted Positive Blood Culture Microbiology ANGELES CULTURE BLOOD Preliminary 04/28/16-0639 Organism 1 POSITIVE BLOOD CULTURE GRAM STAIN RESULT GRAM POSITIVE COCCI ?STAPH BC BOTTLE Isolated from Anaerobic Bottle of Set Drawn DATE CALLED: 04/27/16 TIME CALLED: 2008 CALLED BY: NOAH FLOOR/DOCTOR: ELEN Henning BC READ BACK YES TYPE OF DRAW PERIPHERAL DRAW TIME OF POSITIVITY 1934 STAPH, PROBABLE COAGULASE NEG ID pending ISOLATED FROM ONE OF FOUR BOTTLES COLLECTED 04/26 Microbiology ANGELES GS (GRAM STAIN) Final 04/28/16-2243 GRAM STAIN RESULT NO POLYS NO ORGANISMS SEEN ANGELES CULT AEROBIC Preliminary 04/30/16-105 PRELIMINARY ID GRAM NEGATIVE MARGO ID AND SENS TO FOLLOW COLONY COUNT/QUANTITY LIGHT GROWTH ANAEROBIC CULTURE Preliminary 04/30/16-1051 No ANAEROBES recovered at 48 hours hold for futher observation X-Rays, CTs and MRIs PROCEDURE: X-RAY CHEST ONE VIEW, PORTABLE FINDINGS: Surgical changes and devices: None. Lungs and pleura: No pleural effusions or pneumothorax. Lungs are clear. Mediastinum: Mediastinal contours appear normal. There is dense calcification of the mitral valve. Heart size is mildly enlarged. Bones and chest wall: No suspicious bony lesions. Overlying soft tissues appear unremarkable. IMPRESSION: Cardiomegaly. No acute pulmonary findings. Dictated by: Inessa Beckman M.D. on 04/26/2016 at 14:39 Approved by: Inessa Beckman M.D. on 04/26/2016 at 14:39 Assessment & Plan 76-year-old female who presented with chronic weakness found to have lower extremity wounds and cellulitis of the right lower extremity Probable acute cellulitis of the right lower extremity associated with a chronic ulcer, present on admission, ongoing -Pt is seen at [facility] in outpatient setting--Some records available and demonstrate positive wound culture of serratia liquefaciens 2015 -Wound care seeing pt--- debrided on 04/28, wound culture pending -MRSA screen Negative -Pt continues to have leukocytosis -Blood cultures ( 1 of 4 bottles) growing gram positive cocci,coagulase negative. -Repeat blood cultures no growth to date -Wound culture preliminary report shows gram negative rods. -Treating with Zosyn, day #5 -Pt is neither improving nor worsening with current treatment plan -Infectious Disease is consulted, appreciate Dr Marquez's input Weakness, present on admission, ongoing -Pt reports she uses a walker at baseline, and can attend to her activities of daily living without assistance. -Physical therapy evaluation-recommend discharge to SNF, pt amenable. -Continue to monitor Diabetes mellitus 2,present on admission, chronic and presumed stable. -Daily blood sugars -Low dose correction with Lispro -Continue to monitor -Diabetic diet Essential hypertension,chronic, presumed stable. -Continue home medications -Continue to monitor. Atrial fibrillation, chronic, stable, present on admission -Continue with home dose of Pradaxa Elevated creatinine, chronicity unknown, present on admission, ongoing -Will continue to monitor labs daily. Resuscitation Status: DNR/DNI:Do Not Resuscitate/Intubate Disposition: 1-2 days to SNF Resuscitation Status: DNR/DNI:Do Not Resuscitate/Intubate Attending Statement I reviewed this patients chart, discussed the plan of care with the resident and examined the patient. I agree with the above physical exam and assessment and plan. Maritza Alcantara DO Apr 30, 2016 13:07 Ayush Marroquin DO Apr 30, 2016 18:12
--- NOTE | 2016-04-30 18:54 | NUR ---
Activity and Fatigue: Patient was not able to get out of her bed with PT. Patient stated that she is "to weak". Patient was turned side to side in bed. She uses the bedpan to void and for BMs.
[2016-04-30] MEDS ORDERED: 0.9% Sodium Chloride 100 ML ONE (19:52)
[2016-04-30] MEDS: Ertapenem Inj 1,000 MG in 0.9% Sodium Chloride 50 ML IV SCH (20:08)
[2016-04-30 21:57] VITALS: BP 122/71; PULSE 91; RESP 18; O2SAT 97
[2016-05-01 05:08] VITALS: BP 138/89; PULSE 95; RESP 18; O2SAT 98
[2016-05-01] MEDS: MeTOProlol XL 25 mg ER24 Tablet PO SCH ×2 (08:24→21:09)
[2016-05-01] MEDS: Insulin LISPRO 300 Unit/3 mL Inj SUBQ SCH ×4 (08:25→21:20)
[2016-05-01] MEDS: Ertapenem Inj 1,000 MG in 0.9% Sodium Chloride 50 ML IV SCH (08:26)
[2016-05-01 09:06] VITALS: BP 120/61; PULSE 72; RESP 20; O2SAT 96
[2016-05-01 11:31] LABS: Mean Corpuscular Hemoglobin 28.1 pg (27.0-35.0); Mean Corpuscular Volume 90.8 fL (81-100)
[2016-05-01 11:32] LABS: BASOPHILS % (AUTO) 0.4 % (0-3); EOSINOPHILS % (AUTO) 1.6 % (0-5); MONOCYTES % (AUTO) 8.3 % (4-12); NEUTROPHILS % (AUTO) 81.8 % (40-74); Platelet Count 377 bil/L (150-400)
[2016-05-01 13:13] VITALS: BP 138/89; PULSE 68; RESP 21; O2SAT 97
--- NOTE | 2016-05-01 15:39 | NUR ---
Lower Legs: Patients lower leg dressings were changed as specified by psychiatric specialist. Wounds are healing and tissue is granulating in raw areas. Honey paste was applied to the areas and areas were covered with Telfa ,Abd pads and wrapped with Kerlix and covered with protective loose fitting elastic stockings. Patients legs are elevated on pillows. Patient reports that her "legs do not hurt".
--- NOTE | 2016-05-01 16:44 | PCM.PNMED ---
Subjective Date of Service May 01, 2016 Subjective Pt reports that overall she is doing well. She reports that her leg pain is improving. Pt also notes she continues to feel weak. She states that yesterday she felt too weak to participate in physical therapy. Pt reports that she feels about the same today. Pt reports she is too weak to use the commode, and has been using the bedpan instead. Pt reports that she has been experiencing some soft stools in increasing frequency. Pt denies any nausea, vomiting or abdominal pain. Pt denies any fevers or chills. Exam Vital Signs Vital Sign - Last Date Time Temp Pulse Resp B/P Pulse Ox O2 Delivery O2 Flow Rate FiO2 05/01/16 13:13 36.8 68 21 138/89 97 Room Air Intake and Output 04/30/16 04/30/16 05/01/16 Cumulative From/Thru 15:00 23:00 07:00 04/26/16 13:35 - 05/01/16 06:17 Intake Total 458 ml 200 ml 6648 ml Output Total 300 ml 175 ml 1951 ml Balance 158 ml 25 ml 4697 ml Intake Oral 458 ml 200 ml 4815 ml IV Total 1833 ml Output Urine Total 300 ml 1776 ml Urine/Stool Mix 175 ml 175 ml # Voids 3 2 18 # Bowel Movements 1 6 Exam General: No acute distress, well-developed, well-nourished, appropriately interactive HEENT: Normocephalic, atraumatic. Pupils equal, round, and reactive to light and accommodation. Anicteric sclerae, moist conjunctivae. Oropharynx with moist mucosa.Poor dentition Neck: Supple with full range of motion.No lymphadenopathy Cardiovascular: Regular rate and rhythm with no murmurs, rubs, or gallops appreciated Pulmonary: Clear to auscultation bilaterally with no crackles, wheezes, or rhonchi. Normal respiratory effort with no use of accessory muscles. Abdomen: Bowel tones present. Soft, nontender, nondistended. 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 Bilateral legs are wrapped -- these were not completely removed for physical exam. On previous exam pt had right anterior holliday with large area of ulceration , erythema and area of eschar.Left heel with ulceration as well. Psychiatric: Normal mood and affect. Alert and oriented to person, place, and time. IVs and Medications Medications Reviewed: Medications were reviewed in detail Lab and Diagnostics Result Diagram: 05/01/1695705/01/16957 Microbiology Microbiology ANGELES GS (GRAM STAIN) Final 04/28/16 GRAM STAIN RESULT NO POLYS NO ORGANISMS SEEN ANGELES CULT AEROBIC Preliminary 05/01/16 Organism 1 SERRATIA LIQUEFACIENS COLONY COUNT/QUANTITY LIGHT GROWTH 1. SERRATIA LIQUEFACIENS M.I.C Interp --------- ------ * AMIKACIN <=2 S * CEFAZOLIN >=64 R * CEFEPIME <=1 S * CEFOXITIN R * CEFTRIAXONE <=1 S * CIPROFLOXACIN <=0.25 S * GENTAMICIN <=1 S * MEROPENEM <=0.25 S * TOBRAMYCIN <=1 S * TRIMETHOPRIM/SULFAMETHOXAZOLE <=20 S * PIPERACILLIN/TAZOBACTAM <=4 S ANAEROBIC CULTURE Preliminary 05/01/16 No ANAEROBES recovered at 48 hours hold for futher observation Microbiology 04/26/16 Blood Culture - Preliminary, Resulted Positive Blood Culture Microbiology ANGELES CULTURE BLOOD Preliminary 04/28/16 Organism 1 POSITIVE BLOOD CULTURE GRAM STAIN RESULT GRAM POSITIVE COCCI ?STAPH BC BOTTLE Isolated from Anaerobic Bottle of Set Drawn DATE CALLED: 04/27/16 TIME CALLED: 2008 CALLED BY: NOAH FLOOR/DOCTOR: ELEN PEREZ READ BACK YES TYPE OF DRAW PERIPHERAL DRAW TIME OF POSITIVITY 1934 STAPH, PROBABLE COAGULASE NEG ID pending ISOLATED FROM ONE OF FOUR BOTTLES COLLECTED 04/26 Microbiology ANGELES GS (GRAM STAIN) Final 04/28/16 GRAM STAIN RESULT NO POLYS NO ORGANISMS SEEN ANGELES CULT AEROBIC Preliminary 04/30/16 PRELIMINARY ID GRAM NEGATIVE MARGO ID AND SENS TO FOLLOW COLONY COUNT/QUANTITY LIGHT GROWTH ANAEROBIC CULTURE Preliminary 04/30/16 No ANAEROBES recovered at 48 hours hold for futher observation X-Rays, CTs and MRIs PROCEDURE: X-RAY CHEST ONE VIEW, PORTABLE FINDINGS: Surgical changes and devices: None. Lungs and pleura: No pleural effusions or pneumothorax. Lungs are clear. Mediastinum: Mediastinal contours appear normal. There is dense calcification of the mitral valve. Heart size is mildly enlarged. Bones and chest wall: No suspicious bony lesions. Overlying soft tissues appear unremarkable. IMPRESSION: Cardiomegaly. No acute pulmonary findings. Dictated by: Inessa Beckman M.D. on 04/26/2016 at 14:39 Approved by: Inessa Beckman M.D. on 04/26/2016 at 14:39 Assessment & Plan 76-year-old female who presented with chronic weakness found to have lower extremity wounds and cellulitis of the right lower extremity Probable acute cellulitis of the right lower extremity associated with a chronic ulcer, present on admission, ongoing -Pt is seen at [facility] in outpatient setting--Some records available and demonstrate positive wound culture of serratia liquefaciens 2015 -Wound care consulted -MRSA screen Negative. -Blood cultures ( 1 of 4 bottles) growing gram positive cocci,coagulase negative. -Leukocytosis improving -Repeat blood cultures no growth to date -Wound culture -SERRATIA LIQUEFACIENS -Infectious Disease is consulted, appreciate Dr Marquez's input -ID recommendations---Discontinue Zosyn, Start Ertapenem. Acute diarrhea etiology unknown, not present on admission, ongoing -Pt has developed diarrhea recently -Given hx of antibiotic use, Cdiff has been ordered Weakness, present on admission, ongoing -Pt reports she uses a walker at baseline, and can attend to her activities of daily living without assistance. -Physical therapy evaluation-recommend discharge to SNF, pt amenable. -No improvement noted, continued weakness, too weak to work with PT -Continue to monitor Diabetes mellitus 2,present on admission, chronic and presumed stable. -Daily blood sugars -Low dose correction with Lispro. Consider increasing to medium correction due to poor control -Continue to monitor -Diabetic diet Essential hypertension,chronic, presumed stable. -Continue home medications -Continue to monitor. Atrial fibrillation, chronic, stable, present on admission -Continue with home dose of Pradaxa Elevated creatinine, chronicity unknown, present on admission, improving -Will continue to monitor labs daily. Resuscitation Status: DNR/DNI:Do Not Resuscitate/Intubate Disposition: 1-2 days to SNF Pain Evaluation: Adequate Pain Control Resuscitation Status: DNR/DNI:Do Not Resuscitate/Intubate Attending Statement I reviewed this patients chart, discussed the plan of care with the resident and examined the patient. I agree with the above physical exam and assessment and plan. Maritza Alcantara DO May 01, 2016 16:44 Ayush Marroquin DO May 02, 2016 16:45
[2016-05-01 16:55] VITALS: BP 127/70; PULSE 70; RESP 18; O2SAT 95
[2016-05-01 21:33] VITALS: BP 143/81; PULSE 88; RESP 18; O2SAT 96
[2016-05-02 05:45] VITALS: BP 149/95; PULSE 82; RESP 18; O2SAT 99
--- NOTE | 2016-05-02 05:55 | NUR ---
NOC activity Pt has been pleasant and cooperative with care. Denies chest pain, sob, n/v and abd discomfort. VSS, and afebrile overnight. Altho has discomfort on leg, but pt states that it's much better than it was yesterday. Pt has been incontinent of bladder but hasn't had a bm on shift. Hourly rounding done, call light within reach and pt has slept most of the night.
[2016-05-02 06:31] LABS: BASOPHILS % (AUTO) 0.3 % (0-3); EOSINOPHILS % (AUTO) 2.3 % (0-5); MONOCYTES % (AUTO) 9.5 % (4-12); Mean Corpuscular Hemoglobin 27.1 pg (27.0-35.0); Mean Corpuscular Volume 91.2 fL (81-100); NEUTROPHILS % (AUTO) 74.3 % (40-74); Platelet Count 370 bil/L (150-400)
[2016-05-02] MEDS: Insulin LISPRO 300 Unit/3 mL Inj SUBQ SCH ×2 (07:28→11:38)
[2016-05-02] MEDS: MeTOProlol XL 25 mg ER24 Tablet PO SCH (07:32)
[2016-05-02] MEDS: Ertapenem Inj 1,000 MG in 0.9% Sodium Chloride 50 ML IV SCH (07:32)
--- NOTE | 2016-05-02 10:34 | NUR ---
PRIMITIVO signed. JESSICA Calzada
[2016-05-02] MEDS ORDERED: SACC250C PO (11:46)
[2016-05-02] MEDS ORDERED: DABI75CA3 PO (11:46)
[2016-05-02] MEDS ORDERED: CIPR-198 PO (12:02)
--- NOTE | 2016-05-02 12:02 | PCM.DIMED ---
Discharge Instructions Date of Service May 02, 2016 Dates of Hospitalization Apr 28, 2016 at 07:55 Discharge Diagnosis Discharge Diagnosis Probable acute cellulitis of the right lower extremity associated with a chronic ulcer, present on admission, ongoing with improvement Acute diarrhea etiology unknown, not present on admission, resolved Weakness, present on admission, improved Diabetes mellitus 2,present on admission, chronic and presumed stable. Essential hypertension,chronic, presumed stable. Atrial fibrillation, chronic, stable, present on admission. Elevated creatinine, chronicity unknown, present on admission, resolved Medication Instructions NEW MEDICATIONS: - Florastor - This is a probiotic, 'healthy bacteria' - This helps alleviate stomach upset and diarrhea while on antibiotics - Continue the entire month of this medication, even after you finish the antibiotics - Hard copy Rx provided - CIPROFLOXACIN 500mg - This is an antibiotic - Take 500mg TWICE daily for a total of TEN days - Complete the entire course as scheduled - Hard copy Rx provided We have also provided a hard copy Rx of your Pradaxa, as that is a regular medication for you, but was not on your list within the computer. Fill the Rx if you need to. Diet Heart Healthy Activity No restrictions (Continue PT at [facility]) Call your provider Fever or Chills, Shortness of breath, Bleeding, Chest pain, Excessive diarrhea, Weakness (unilateral) Patient Instructions - Continue to work with physical therapy at [facility], and continue exercises you can do safely by yourself. We want you to improve your strength so you are well enough to return home! - Stay well hydrated, drink water throughout the day. This is very important while you are taking the antibiotic! - Please notify staff if your wounds worsen Follow-up plan - Follow up with your primary care within 2-4 weeks, pending on when you are able to be released from [facility]. At that visit, discuss - Your hospitalization - Your stay at [facility] - What you can do at home to prevent future admissions - Follow up with your wound care center/ [place], within 1 week of discharge from [facility] - Discuss the antibiotics and your symptoms Follow-up Provider: Evangelista Voss MD Follow-up with PCP in: 2 weeks (Pending DC from [facility]) Provider: OTHER,PHYSICIAN Follow-up in: 2 weeks (Wound Care- [facility]) Marielos Gabriel DO May 02, 2016 11:34
--- NOTE | 2016-05-02 12:28 | NUR ---
Social Work-discharge: Data:EMR Reviewed. Pt is on day 4 of hospitalization for cellulitis per H&P. Pt is medically stable to discharge today. PT continues to recommend SNF, pt requiring 2 person max assist. TAWANNA spoke with Yue Melara, admissions at [facility], who confirms they are able to accept pt today. Yue arranged cabualnce transport for 1130. TAWANNA faxed orders to [phone] and created packet. TAWANNA updated pt at bedside, who is agreeable to plan. Pt states she will call her sister and her nephew and declines having SW call them for her. RN,UC,pt/family, and [facility] all updated and agreeable to plan. Assessment:Pt to benefit from SNF. Plan:Pt to discharge to [facility] today via cabulance at 1330. RN,UC,pt/family, and [facility] all updated and agreeable to plan. JESSICA Calzada
[2016-05-02 12:56] VITALS: BP 137/84; PULSE 84; RESP 19; O2SAT 95
--- NOTE | 2016-05-02 17:03 | PCM.DC.MED ---
Discharge Summary Date of Service May 02, 2016 Dates of Hospitalization Date of Hospital Admission Apr 28, 2016 at 07:55 Date of Discharge: May 02, 2016 Providers: Admitting Physician: Cleveland Mitchell MD Primary Care Physician: Evangelista Voss MD Attending Physician: Cleveland Mitchell MD Diagnosis at Time of Discharge Diagnosis at Time of Discharge Probable acute cellulitis of the right lower extremity associated with a chronic ulcer, present on admission, ongoing with improvement Acute diarrhea etiology unknown, not present on admission, resolved Weakness, present on admission, improved Diabetes mellitus 2,present on admission, chronic and presumed stable. Essential hypertension,chronic, presumed stable. Atrial fibrillation, chronic, stable, present on admission. Elevated creatinine, chronicity unknown, present on admission, resolved Consultations Infectious disease Procedures XRay, CTs & MRIs PROCEDURE: X-RAY CHEST ONE VIEW, PORTABLE IMPRESSION: Cardiomegaly. No acute pulmonary findings. Dictated by: Inessa Beckman M.D. on 04/26/2016 at 14:39 Approved by: Inessa Beckman M.D. on 04/26/2016 at 14:39 Brief History History obtained from admission note, dated 04/26/2016, composed by Dr. Smith: This is a pleasant 76-year-old female who presents with acute on chronic weakness. She was unable to get into the bathroom today. She got from the bed to her wheelchair but could not get from the wheelchair to the bathroom. She called medics. Ultimately she had to call in the second time. She notes that she has had progressive weakness for several weeks but today seems to cross the threshold. She was equally weak in both legs. No unilateral weakness or numbness. No difficulty speaking or other particular neurologic symptoms. She has had a chronic wound on the right pretibial region which she has been followed by wound clinic in [place]. She has had no fevers or chills. She does have increased redness around the wound today. There is some. She has had serial debridement and wound care. She also has an ulcer behind the left heel which is several weeks old but not read or getting worse. She denies fevers chills. No rhinorrhea cough or sore throat. No nausea vomiting or diarrhea. No shortness of breath. Hospital Course Ms. Nielsen is a pleasant 76-year-old female who presented with chronic weakness , that was found to have lower extremity wounds and cellulitis of the right lower extremity. She was admitted for evaluation and treatment of weakness likely secondary to ongoing cellulitis, which was present on admission. Wound cultures revealed cultures of Serratia, and infectious disease was consulted. Antibiotics were changed from Zosyn to ertapenem, and transitioned to cipro po at discharge. She was discharged in stable condition to [facility]. Probable acute cellulitis of the right lower extremity associated with a chronic ulcer, present on admission, ongoing -Pt is seen at [facility] in outpatient setting--Some records available and demonstrate positive wound culture of serratia liquefaciens 2015 -Wound care consulted and tended to wounds throughout hospitalization -MRSA screen Negative. -Blood cultures ( 1 of 4 bottles) growing gram positive cocci,coagulase negative; likely contaminant. -Repeat blood cultures no growth to date -Wound culture -SERRATIA LIQUEFACIENS -Infectious Disease is consulted, appreciated Dr Marquez's input -Zosyn changed to ertapenem - Rx at [facility]: Ciprofloxacin 500mg BID x10 days - Recommended to continue wound care as outpatient Acute diarrhea etiology unknown, not present on admission, Resolved -Pt has developed diarrhea recently -Given hx of antibiotic use, Cdiff has been ordered: NEGATIVE Weakness, present on admission, ongoing -Pt reports she uses a walker at baseline, and can attend to her activities of daily living without assistance. -Physical therapy evaluation-recommend discharge to SNF, pt amenable - DC to [facility] with ongoing PT Diabetes mellitus 2,present on admission, chronic and presumed stable. -Controlled with correctional scale while hospitalized Essential hypertension,chronic, presumed stable. -Continued home medications Atrial fibrillation, chronic, stable, present on admission -Continued with home dose of Pradaxa - New Rx provided at [facility], as Rx was not initially found on med rec. Elevated creatinine, chronicity unknown, present on admission, Resolved - Resolved - Encourage po intake of fluids Exam Vital Signs (Last) Date Time Temp Pulse Resp B/P Pulse Ox O2 Delivery O2 Flow Rate FiO2 05/02/16 12:56 36.6 84 19 137/84 95 Room Air Exam General: No acute distress, well-developed, well-nourished, appropriately interactive HEENT: Normocephalic, atraumatic. Pupils equal, round, and reactive to light. Anicteric sclerae, moist conjunctivae. Oropharynx with moist mucosa. Poor dentition Neck: Supple with full range of motion. Trachea midline Cardiovascular: Regular rate and rhythm with no murmurs, rubs, or gallops appreciated Pulmonary: Clear to auscultation bilaterally with no crackles, wheezes, or rhonchi. Normal respiratory effort with no use of accessory muscles. Abdomen: Bowel tones present. Soft, nontender, nondistended. Extremities: RLE erythema above bandage largely resolved; nontender to touch; Bilateral legs are wrapped -- these were not completely removed for physical exam. On previous exam pt had right anterior holliday with large area of ulceration , erythema and area of eschar. Left heel with ulceration as well. Psychiatric: Normal mood and affect. Alert and oriented to person, place, and time. Neuro: CNII-XII grossly intact; speech normal; facial expressions symmetric Test 04/26/16 13:45 04/26/16 14:50 04/26/16 16:00 04/26/16 16:50 Urine Color Yellow (YELLOW) Urine Appearance Clear (CLEAR,HAZY) Urine pH 5.5 (5.0-8.0) Urine Specific [place] 1.025 (1.003-1.035) Urine Protein 30mg/dL (NEG,TRACE) Urine Glucose (UA) 250mg/dL (NEGATIVE) Urine Ketones 15mg/dL (NEGATIVE) Urine Occult Blood Moderate (NEGATIVE) Urine Nitrite Negative (NEGATIVE) Urine Bilirubin Negative (NEGATIVE) Urine Urobilinogen Normalmg/dL (NORMAL) Urine Leukocyte Esterase Negative (NEGATIVE) Urine RBC 0-2/hpf (0-2) Urine WBC 0-5/hpf (0-5) Urine Epithelial Cells None/hpf (NONE-MOD) Urine Crystals Amorphous urates (NONE Urine Bacteria Few/hpf (NONE-FEW) Urine Hyaline Casts None/lpf (NONE) Urine Granular Casts None seen (NONE SEEN) Urine Waxy Casts None seen (NONE SEEN) Urine Red Blood Cell Casts None seen (NONE SEEN) Urine White Blood Cell Casts None seen (NONE SEEN) Urine Mucus Present (None Seen) Urine Trichomonas None seen (NONE SEEN) Urine Yeast None (NONE SEEN) Urinalysis Comment None Urine Culture Reflexed Not indicated Erythrocyte Sedimentation Rate 66mm/hr (0-40) Lactic Acid Level 1.4mmol/L (0.4-2.0) Hemoglobin A1c 8.1% (4.8-5.6) Test 04/28/16 05:45 05/02/16 05:45 Procalcitonin 0.35ng/mL (See Comment) White Blood Count 10.4th/mm3 (3.8-10.1) Red Blood Count 2.95mil/mm3 (3.90-5.20) Hemoglobin 8.0g/dL (12.0-15.6) Hematocrit 26.9% (35.0-46.0) Mean Corpuscular Volume 91.2fL (81-100) Mean Corpuscular Hemoglobin 27.1pg (27.0-35.0) Mean Corpuscular Hemoglobin Concent 29.7% (32.0-37.0) Red Cell Distribution Width 16.0% (12.3-15.4) Platelet Count 370bil/L (150-400) Neutrophils (%) (Auto) 74.3% (40-74) Lymphocytes (%) (Auto) 12.8% (14-46) Monocytes (%) (Auto) 9.5% (4-12) Eosinophils (%) (Auto) 2.3% (0-5) Basophils (%) (Auto) 0.3% (0-3) Sodium Level 138mEq/L (134-144) Potassium Level 4.7mEq/L (3.5-5.2) Chloride Level 105mEq/L (97-108) Carbon Dioxide Level 24mmol/L (18-29) Blood Urea Nitrogen 22mg/dL (8-27) Creatinine 0.95mg/dL (0.57-1.00) Estimat Glomerular Filtration Rate 81mL/min (>59) Glucose Level 136mg/dL (60-99) Calcium Level 8.7mg/dL (8.5-10.1) Total Bilirubin 0.3mg/dL (0.0-1.2) Aspartate Amino Transf (AST/SGOT) 10U/L (0-50) Alanine Aminotransferase (ALT/SGPT) 9U/L (0-32) Alkaline Phosphatase 69U/L (25-165) Total Protein 5.1g/dL (6.4-8.4) Albumin 2.5g/dL (3.4-5.0) Microbiology Results Microbiology ANGELES GS (GRAM STAIN) Final 04/28/16 GRAM STAIN RESULT NO POLYS NO ORGANISMS SEEN ANGELES CULT AEROBIC Preliminary 05/01/16 Organism 1 SERRATIA LIQUEFACIENS COLONY COUNT/QUANTITY LIGHT GROWTH 1. SERRATIA LIQUEFACIENS M.I.C Interp --------- ------ * AMIKACIN <=2 S * CEFAZOLIN >=64 R * CEFEPIME <=1 S * CEFOXITIN R * CEFTRIAXONE <=1 S * CIPROFLOXACIN <=0.25 S * GENTAMICIN <=1 S * MEROPENEM <=0.25 S * TOBRAMYCIN <=1 S * TRIMETHOPRIM/SULFAMETHOXAZOLE <=20 S * PIPERACILLIN/TAZOBACTAM <=4 S ANAEROBIC CULTURE Preliminary 05/01/16 No ANAEROBES recovered at 48 hours hold for futher observation Microbiology 04/26/16 Blood Culture - Preliminary, Resulted Positive Blood Culture Microbiology ANGELES CULTURE BLOOD Preliminary 04/28/16 Organism 1 POSITIVE BLOOD CULTURE GRAM STAIN RESULT GRAM POSITIVE COCCI ?STAPH BC BOTTLE Isolated from Anaerobic Bottle of Set Drawn DATE CALLED: 04/27/16 TIME CALLED: 2008 CALLED BY: NOAH VELASQUEZ/DOCTOR: ELEN PEREZ READ BACK YES TYPE OF DRAW PERIPHERAL DRAW TIME OF POSITIVITY 1934 STAPH, PROBABLE COAGULASE NEG ID pending ISOLATED FROM ONE OF FOUR BOTTLES COLLECTED 04/26 Microbiology ANGELES GS (GRAM STAIN) Final 04/28/16 GRAM STAIN RESULT NO POLYS NO ORGANISMS SEEN ANGELES CULT AEROBIC Preliminary 04/30/16 PRELIMINARY ID GRAM NEGATIVE MARGO ID AND SENS TO FOLLOW COLONY COUNT/QUANTITY LIGHT GROWTH ANAEROBIC CULTURE Preliminary 04/30/16 No ANAEROBES recovered at 48 hours hold for futher observation Discharge Medications Discharge Medications Ciprofloxacin (Ciprofloxacin) 500 Mg Tablet 500 MG PO BID Prescribed by: MARIELOS BETANCOURT DO Dabigatran Etexilate Mesylate (Pradaxa) 75 Mg Capsule 75 MG PO BID Prescribed by: MARIELOS BETANCOURT DO Ferrous Sulfate (Ferrous Sulfate) 325 Mg Tablet. 325 MG PO DAILY (Reported) Metformin-Expunged Drug, Do Not Renew! (Metformin-Expunged Drug, Do Not Renew!) 1,000 Mg Tab.er.24 1,000 MG PO BID (Reported) Metoprolol Succinate ER (Metoprolol Succinate ER) 25 Mg Tab.er.24h 25 MG PO BID (Reported) Mv-Mn/FA/Vit K/Lycop/Lut/Zeaxa (Ocuvite Eye + Multi Tablet) 200 Mcg-15 Mcg-150 Mcg-5 Mg-1 Mg Tablet 1 EACH PO DAILY (Reported) Saccharomyces Boulardii (Florastor) 250 Mg Capsule 250 MG PO BID Prescribed by: MARIELOS BETANCOURT, DO Miscellaneous Medications Cyanocobalamin (Vitamin B-12) (Vitamin B-12) 1,000 Mcg Tab.subl 1,000 MCG SL ( Reported) Additional med instructions NEW MEDICATIONS: - Florastor - This is a probiotic, 'healthy bacteria' - This helps alleviate stomach upset and diarrhea while on antibiotics - Continue the entire month of this medication, even after you finish the antibiotics - Hard copy Rx provided - CIPROFLOXACIN 500mg - This is an antibiotic - Take 500mg TWICE daily for a total of TEN days - Complete the entire course as scheduled - Hard copy Rx provided We have also provided a hard copy Rx of your Pradaxa, as that is a regular medication for you, but was not on your list within the computer. Fill the Rx if you need to. Followup Plan Follow-up plan - Follow up with your primary care within 2-4 weeks, pending on when you are able to be released from [facility]. At that visit, discuss - Your hospitalization - Your stay at [facility] - What you can do at home to prevent future admissions - Follow up with your wound care center/ [place], within 1 week of discharge from [facility] - Discuss the antibiotics and your symptoms Discharge Diet: Heart Healthy Discharge Activity: No restrictions (Continue PT at [facility]) Patient Instructions - Continue to work with physical therapy at [facility], and continue exercises you can do safely by yourself. We want you to improve your strength so you are well enough to return home! - Stay well hydrated, drink water throughout the day. This is very important while you are taking the antibiotic! - Please notify staff if your wounds worsen Follow-up Provider: Evangelista Voss MD Follow-up with PCP in: 2 weeks (Pending DC from [facility]) Provider: OTHER,PHYSICIAN Follow-up in: 2 weeks (Wound Care- [facility]) Marielos Betancourt DO May 02, 2016 16:42
== END 2016-05-02 14:00 | DRG 603 ==
LOC: SED 13:25 → MPC 17:48 → OBSVTOIN 04-28 07:55
PROVIDERS: ADMIT Hospitalist; ATTEND Hospitalist
PROC: 0HDKXZZ Extraction of Right Lower Leg Skin, External Approach (ICD-10-PCS; principal; 2016-04-28)
DX: L03.115 Cellulitis of right lower limb (principal); L97.929 Non-pressure chronic ulcer of unspecified part of left lower leg with unspecified severity; L97.919 Non-pressure chronic ulcer of unspecified part of right lower leg with unspecified severity; E11.9 Type 2 diabetes mellitus without complications; I10 Essential (primary) hypertension; H54.41 Blindness, right eye, normal vision left eye; I48.2 Chronic atrial fibrillation; Z66 Do not resuscitate; M48.00 Spinal stenosis, site unspecified; R19.7 Diarrhea, unspecified

== ENCOUNTER 2016-06-04 18:52 | Inpatient (IN) | payer MEDICARE, OTHER ==
[~2016-06-04] VITALS: Ht 180.3 cm; Wt 81.3 kg
[2016-06-04] VITALS (8 sets, daily range): BP systolic 76–120; BP diastolic 41–59; PULSE 91–138; RESP 17–25; O2SAT 94–98
[~2016-06-04 18:52] MED LIST changes: +CIPR-198 PO; +CYAN100017 SL; +DABI75CA3 PO; +FERR325T6 PO; +MV-M1TAB38 PO; -NIAC500SA PO; +SACC250C PO; -VIT1CAPS23 PO; -ZES10 PO
--- NOTE | 2016-06-04 18:59 | ED.REPORT ---
HPI-Altered Mental Status Date of Service Jun 04, 2016 ED Provider: Dr. Eda Madrigal Patient is as 76-year-old female with a hx of DM, HTN and Afib presents to the ED via EMS from assisted living with decreased LOC. Patient is unresponsive and via medics had emesis and was incontinent in the ambulance. Via medics she was last seen normal an hour ago. Patient was seen at the ED on the first may. She opens her eyes in response to voices but does not respond to questions. Nursing Notes Stated Complaint: DECREASED LOC Chief Complaint: Neuro Symptoms/ Deficits Nursing Notes Reviewed: Yes Allergies: Coded Allergies: Tfxwlgk-Ylb-Lfs Reductase Inhibitor (Verified Allergy, Unknown, 12/21/13) meperidine HCl (Verified Allergy, Unknown, 12/21/13) Scheduled Ciprofloxacin (Ciprofloxacin) 500 Mg Tablet 500 MG PO BID Dabigatran Etexilate Mesylate (Pradaxa) 75 Mg Capsule 75 MG PO BID Ferrous Sulfate (Ferrous Sulfate) 325 Mg Tablet. 325 MG PO DAILY Metformin-Expunged Drug, Do Not Renew! (Metformin-Expunged Drug, Do Not Renew!) 1,000 Mg Tab.er.24 1,000 MG PO BID Metoprolol Succinate ER (Metoprolol Succinate ER) 25 Mg Tab.er.24h 25 MG PO BID Mv-Mn/FA/Vit K/Lycop/Lut/Zeaxa (Ocuvite Eye + Multi Tablet) 200 Mcg-15 Mcg-150 Mcg-5 Mg-1 Mg Tablet 1 EACH PO DAILY Saccharomyces Boulardii (Florastor) 250 Mg Capsule 250 MG PO BID Miscellaneous Medications Cyanocobalamin (Vitamin B-12) (Vitamin B-12) 1,000 Mcg Tab.subl 1,000 MCG SL General Time Seen by MD: 18:59 Transferred From: shelter Chief Complaint Unresponsive Hx Obtained From: EMS Unable to Obtain Hx: Patient condition Arrived By: Ambulance Sudden in Onset?: Yes Onset Occurred: Just prior to arrival Symptom Duration: Since onset Severity: Current: Mild Recent Healthcare: Recent doctor visit, Recent hospitalization Similar Sx Previous: Yes Past Medical History Past Medical History Reports: Cancer, Diabetes mellitus, Hypertension Reports: Atrial fibrillation, Urinary tract infection Past Surgical History Skin cancer excision Hip Smoking History Never Smoker Social History Alcohol Use: Denies alcohol use Drug Use: Denies drug use Ambulatory Status Wheelchair Review of Systems Unable to Obtain ROS Patient condition Physical Exam Initial Vital Signs Vital Signs (First) Date Time Temp Pulse Resp B/P Pulse Ox O2 Delivery O2 Flow Rate FiO2 06/04/16 18:56 38.7 131 25 120/58 98 Nasal Cannula 2 Initial VS: Reviewed, Vital signs abnormal ENT: Mucous membranes moist, Conjunctiva normal, No scleral icterus Abdomen / GI: Soft, Non-tender, No guarding, No rebound, No distention Back: No CVA tenderness Alertness: Positive: Unresponsive opens eyes to voice not answering questions lips are dry Head / Eyes: Atraumatic, Normocephalic, PERRL, EOMI Neck: Atraumatic, Supple, No meningismus, Full range of motion, No swelling, Non-tender Respiratory / Chest: No rhonchi, No wheezing, No retractions tachypnic Cardiovascular: Regular rhythm, Heart sounds NL, No gallop, No murmurs, No rubs Heart Rate / Rhythm: Positive: Tachycardia Mental Status: Positive: Unresponsive Right Knee: Positive: Swelling present... ulcer to right lower extremity cellulitis on lower extremities no significant surrounding erythema Interpretation & Diagnostics Lab Results Interpretation Result Diagram: 06/04/16214606/04/16 1913 Test 06/04/16 18:54 06/04/16 19:13 06/04/16 19:56 06/04/16 21:47 Urine Color Yellow (YELLOW) Urine Appearance Hazy (CLEAR,HAZY) Urine pH 5.0 (5.0-8.0) Urine Specific [place] 1.028 (1.003-1.035) Urine Protein 100mg/dL (NEG,TRACE) Urine Glucose (UA) Negativemg/dL (NEGATIVE) Urine Ketones Tracemg/dL (NEGATIVE) Urine Occult Blood Small (NEGATIVE) Urine Nitrite Negative (NEGATIVE) Urine Bilirubin Negative (NEGATIVE) Urine Urobilinogen Normalmg/dL (NORMAL) Urine Leukocyte Esterase Negative (NEGATIVE) Urine RBC 0-2/hpf (0-2) Urine WBC 0-5/hpf (0-5) Urine Epithelial Cells None/hpf (NONE-MOD) Urine Crystals Amorphous urates (NONE Urine Bacteria Few/hpf (NONE-FEW) Urine Hyaline Casts None/lpf (NONE) Urine Granular Casts None seen (NONE SEEN) Urine Waxy Casts None seen (NONE SEEN) Urine Red Blood Cell Casts None seen (NONE SEEN) Urine White Blood Cell Casts None seen (NONE SEEN) Urine Mucus None seen (None Seen) Urine Trichomonas None seen (NONE SEEN) Urine Yeast None (NONE SEEN) Urinalysis Comment None Urine Culture Reflexed Not indicated White Blood Count 27.2th/mm3 (3.8-10.1) Red Blood Count 2.98mil/mm3 (3.90-5.20) Mean Corpuscular Volume 86.2fL (81-100) Mean Corpuscular Hemoglobin 25.8pg (27.0-35.0) Mean Corpuscular Hemoglobin Concent 30.0% (32.0-37.0) Red Cell Distribution Width 17.1% (12.3-15.4) Platelet Count 334bil/L (150-400) Neutrophils (%) (Auto) 95.1% (40-74) Lymphocytes (%) (Auto) 2.2% (14-46) Monocytes (%) (Auto) 2.2% (4-12) Eosinophils (%) (Auto) 0% (0-5) Basophils (%) (Auto) 0.1% (0-3) Sodium Level 132mEq/L (134-144) Potassium Level 4.4mEq/L (3.5-5.2) Chloride Level 94mEq/L (97-108) Carbon Dioxide Level 19mmol/L (18-29) Blood Urea Nitrogen 28mg/dL (8-27) Creatinine 1.01mg/dL (0.57-1.00) Estimat Glomerular Filtration Rate 76mL/min (>59) Glucose Level 283mg/dL (60-99) Calcium Level 8.9mg/dL (8.5-10.1) Magnesium Level 1.1mg/dL (1.6-2.6) Total Bilirubin 0.7mg/dL (0.0-1.2) Aspartate Amino Transf (AST/SGOT) 12U/L (0-50) Alanine Aminotransferase (ALT/SGPT) 5U/L (0-32) Alkaline Phosphatase 71U/L (25-165) Troponin T 0.104ug/L (0.0-0.011) Total Protein 6.8g/dL (6.4-8.4) Albumin 2.8g/dL (3.4-5.0) Procalcitonin 1.16ng/mL (0.00-0.08) Hold Urine Received (Received) Hemoglobin 7.2g/dL (12.0-15.6) Hematocrit 23.9% (35.0-46.0) Lactic Acid Level 2.5mmol/L (0.4-2.0) ECG Interpretation ECG Interpretation: no ST changes nonspecific T abnormalities Time: 19:00 Interpreted by: ED physician Abnormal Rate: Rate (128) Rhythm / Conduction: Atrial fibrillation X-Ray Chest Interpretation Chest Xray Interpretation: IMPRESSION: 1. Cardiomegaly, without acute cardiopulmonary disease. 2. Changes of bilateral shoulder rotator cuff arthropathy. Dictated by: Kaden Turpin M.D. on 06/04/2016 at 19:15 Approved by: Kaden Turpin M.D. on 06/04/2016 at 19:17 View: Portable Interpretation / Wet Read by: Interpret - Radiologist CT Head Interpretation IMPRESSION: No acute intracranial abnormalities. 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 Dictated by: Kaden Turpin M.D. on 06/04/2016 at 19:28 Approved by: Kaden Turpin M.D. on 06/04/2016 at 19:30 Study: Head CT no contrast Interpretation / Wet Read by: Interpret - Radiologist Re-Eval/Medical Decision Med Decision/Clinical Course The patient is altered and is septic. An obvious source of infection was not found. She does have chronic ulcers to his lower extremity but I do not see any surrounding erythema or swelling. She has has a sacral decubitus. Again not significant erythema. She was evaluated for pneumonia, urinary tract infection, cellulitis, and intra-abdominal pathology. Her abdominal exam was benign. I spoke with her sister and her nephew. The nephew is the power of research attorney and they wanted antibiotics and comfort measures no extreme intervention such as pressors or central lines. Re-Evaluation/Progress : Time of Eval: 21:05 Re-Evaluation/Progress Note: Spoke with Amairani Nielsen, power of research attorney ([phone]). Case discussed. Patient's wishes were to be put on antibiotics and to be kept comfortable. Counseled Regarding: Diagnosis, Lab results, Need for admission Patient Discharge & Departure Impression: Primary Impression: Sepsis Sepsis type: sepsis due to unspecified organism Qualified Code: A41.9 - Sepsis, unspecified organism Additional Impression: Atrial fibrillation Atrial fibrillation type: unspecified Qualified Code: I48.91 - Unspecified atrial fibrillation Disposition: ADMITTED TO HOSPITAL Discharge Condition All VS Reviewed: Yes Condition: Stable Referrals: Evangelista Voss MD (PCP) Scribe Attestation Portion of this note were transcribed by Erica Cheney. I, Dr. Madrigal, personally performed the history, physical exam, and medical decision-making: I reviewed and confirmed the accuracy for the information in the transcribed note. Signed by: junito Boland, 06/04/16 2100 copies to: Evangelista Voss MD, Jena M MD Jun 04, 2016 18:59 ERICA CHENEY Jun 04, 2016 19:24
[2016-06-04] MEDS ORDERED: 0.9% Sodium Chloride 1,000 ML IV ONE (19:07)
--- NOTE | 2016-06-04 19:22 | DRSVH ---
PROCEDURE: X-RAY CHEST ONE VIEW, PORTABLE ([id number]) INDICATIONS: 76 year-old female with shortness of breath. TECHNIQUE: One view of the chest was acquired. COMPARISON: [facility], CR, XR CHEST 1VW (PORTABLE), 04/26/2016, 14:06. FINDINGS: Surgical changes and devices: None. Lungs and pleura: No pleural effusions or pneumothorax. Lungs are clear. Lung volumes are decrease d. Mediastinum: Mediastinal contours appear normal. Cardiomegaly is unchanged. There is senescent mitr al valve annular calcification as before. Bones and chest wall: No suspicious bony lesions. There is superior migration of both humeral heads , with acromiohumeral interval narrowing. Overlying soft tissues appear unremarkable. IMPRESSION: 1. Cardiomegaly, without acute cardiopulmonary disease. 2. Changes of bilateral shoulder rotator cuff arthropathy. Dictated by: Kaden Turpin M.D. on 06/04/2016 at 19:15 Approved by: Kaden Turpin M.D. on 06/04/2016 at 19:17
[2016-06-04 19:26] LABS: BASOPHILS % (AUTO) 0.1 % (0-3); EOSINOPHILS % (AUTO) 0 % (0-5); MONOCYTES % (AUTO) 2.2 % (4-12); Mean Corpuscular Hemoglobin 25.8 pg (27.0-35.0); Mean Corpuscular Volume 86.2 fL (81-100); NEUTROPHILS % (AUTO) 95.1 % (40-74); Platelet Count 334 bil/L (150-400)
--- NOTE | 2016-06-04 19:36 | DRSVH ---
PROCEDURE: CT BRAIN WITHOUT CONTRAST ([id number]) INDICATIONS: 76 year-old female with altered mental status. TECHNIQUE: Noncontrast 4.5 mm thick angled axial sections acquired from the foramen magnum to the vertex, with c oronal reformats. COMPARISON: None. FINDINGS: Image quality: Excellent. CSF spaces: Basal cisterns are patent. No extra-axial fluid collections. Ventricles are normal in size and shape. Brain: No midline shift. No intracranial masses or hemorrhage. Nonacute lacunar infarct involves th e right caudate nucleus head. There is mild periventricular white matter chronic small vessel ischemi c change. There is intracranial internal carotid and left vertebral artery atherosclerosis. Skull and face: Calvarium and visualized facial bones are intact, without suspicious lesions. Sinuses: Visualized sinuses and mastoids are clear. IMPRESSION: No acute intracranial abnormalities. 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 Dictated by: Kaden Turpin M.D. on 06/04/2016 at 19:28 Approved by: Kaden Turpin M.D. on 06/04/2016 at 19:30
[2016-06-04 19:58] LABS: Magnesium 1.1 mg/dL (1.6-2.6); TROPONIN T 0.104 ug/L (0.0-0.011)
[2016-06-04] MEDS ORDERED: Magnesium Sulf 4 Gm/100 mL H2O 4 GM in IV Premix 1 EACH IV ONE (20:00)
[2016-06-04] MEDS ORDERED: Diltiazem 5 mg/mL 5 mL Inj IVPUSH ONE (20:15)
[2016-06-04 20:20] LABS: APPEARANCE,URINE HAZY (CLEAR,HAZY); COLOR,URINE YELLOW (YELLOW); OCCULT BLOOD,URINE SMALL (NEGATIVE); UROBILINOGEN,URINE NORMAL (NORMAL)
[2016-06-04] MEDS ORDERED: Vancomycin Dose per Pharmacist XX ONE (20:35)
[2016-06-04] MEDS ORDERED: Piperacillin-Tazo 3.375 Gm Inj 3.375 GM in Dextrose 5% Minibag Plus 50 ML IV ONE (20:35)
[2016-06-04] MEDS ORDERED: Ondansetron 2 mg/mL 2 mL Inj IVPUSH PRN (21:45)
[2016-06-04] MEDS ORDERED: 0.9% Sodium Chloride 500 ML IV ONE (21:45)
[2016-06-04] MEDS ORDERED: Alum-Mag Hydrox-Simeth 30 mL Suspension PO PRN (21:45)
[2016-06-04] MEDS ORDERED: Vancomycin Inj 1,000 MG in IV Premix 1 EACH IV ONE (21:55)
--- NOTE | 2016-06-04 21:56 | DRSVH ---
PROCEDURE: CT ABDOMEN AND PELVIS WITHOUT CONTRAST ([id number]) INDICATIONS: 76 year-old unresponsive female with infection of uncertain origin. TECHNIQUE: Noncontrast 5 mm thick sections acquired from the diaphragms to the symphysis. 5 mm coronal and sagi ttal reformats were then performed. For radiation dose reduction, the following was used: automated exposure control, adjustment of mA and/or kV according to patient size. COMPARISON: [facility], CT, ABD/PELVIS W/CON ([facility]), 12/13/2012, 13:22. FINDINGS: Image quality: Metallic streak artifact from right hip arthroplasty hardware obscures adjacent bony a nd soft tissue structures. ABDOMEN: Lung bases: Lung bases are clear. Trace bibasilar mobile pleural effusions are present. There is int erval development of mild cardiomegaly. Senescent mitral valve annular calcification is again noted. There are nonacute posterior left ninth and 10th rib fractures. Solid organs: Liver and spleen are normal in size. Gallbladder appears filled with sludge, measurin g 38 Hounsfield units in density. Pancreas is normal in contours. No adrenal nodules. Kidneys are normal in size, without hydronephrosis or nephrolithiasis. 1.8 cm anteromedial right renal cortical s imple cyst is present. Peritoneum and bowel: Unenhanced bowel loops demonstrate normal wall thickness and caliber. No colo mónica diverticula. No free fluid or air. Nodes and vessels: No retroperitoneal or mesenteric adenopathy by size criteria. Aorta and inferior vena cava are normal in caliber, with moderate aortoiliac atherosclerosis. There is widespread visc eral artery atherosclerosis as well. Miscellaneous: Small periumbilical fat containing ventral hernia is unchanged. PELVIS: Genitourinary: The bladder is decompressed by a Selby catheter. Postmenopausal uterus appears normal in overall size. Postmenopausal ovaries are not well seen. Miscellaneous: No inguinal hernias or adenopathy. Bones: No suspicious bony lesions. No vertebral body compression fractures. There is lower thoraci c and lower lumbar spine disc degeneration. Patient is status post right hip arthroplasty as before. IMPRESSION: 1. Sludge-filled gallbladder may suggest acalculous cholecystitis. 2. Widespread mesenteric atherosclerosis would suggest background diabetes mellitus and/or hyperparat hyroidism. 3. Trace bibasilar mobile pleural effusions are of uncertain etiology. Dictated by: Kaden Turpin M.D. on 06/04/2016 at 21:38 Approved by: Kaden Turpin M.D. on 06/04/2016 at 21:50
[2016-06-04] MEDS ORDERED: 0.9% Sodium Chloride 1,000 ML IV SCH (22:45)
[2016-06-04] MEDS ORDERED: 0.9% Sodium Chloride 250 ML IV PRN (22:50)
[2016-06-04] MEDS ORDERED: Acetaminophen IV 1,000 MG in IV Premix 1 EACH IV PRN (23:35)
[2016-06-05] VITALS (16 sets, daily range): BP systolic 74–86; BP diastolic 46–54; PULSE 59–96; RESP 15–28; O2SAT 95–100
[2016-06-05] MEDS ORDERED: Digoxin 0.25 mg/mL 2 mL Inj IV ONE
[2016-06-05] MEDS ORDERED: HYDROmorphone 0.5 mg/0.5 mL iSecure Syringe IVPUSH PRN (00:15)
--- NOTE | 2016-06-05 00:22 | PCM.HPMED ---
Subjective Date of Service Jun 04, 2016 Primary Provider: Admitting Physician: Primary Care Physician: Evangelista Voss MD Attending Physician: Chief Complaint: Altered mental status History of Present Illness: Patient is a 76 year old female with a history of atrial fibrillation and hypertension. She presented to [facility] today via EMS from [facility]. She was noted to have decreased LOC by the staff and was last seen normal about one hour prior to EMS being called. Per ED note patient had emesis and was incontinent in the ambulance. No ROS has been obtained from patient. Nursing staff in the ED report skin breakdown on coccyx and perianal area. Nursing notes from [facility] reviewed. Patient with low grade fever (100.6) first documented around 0800 on 06/03/16. Highest documented temperature seen was 102.6 at 0800 on 06/04/16. No reported cough, sore throat, congestion, swollen glands. Generalized aching pains reported. Perhaps some increased drainage from her right lower extremity noted. In the ED the patient had temperature of 38.7, heart rate 131, respiratory rate 25, blood pressure 120/58, and O2 saturation of 98% on 2L via nasal cannula. Labs were remarkable for WBC 27, Hgb 7.7, sodium 132, creatinine 1.01, blood glucose 283, magnesium 1.1, and lactic acid 2.9. IV antibiotics begun in the ED. Magnesium replaced. Obtained CT abd/pelvis to assess for sources of infection. After CT, patient became hypotensive and IV fluid levels increased. Dr. Madrigal was able to speak with the patient's nephew and DPOA, Desean Nielsen. He told her that the patient is DNR/DNI and wishes to receive medications like antibiotics and to be kept comfortable. She would not want pressors, central lines or other machines to keep her alive. Review of Systems: ROS could not be obtained as patient remained asleep throughout H&P. Allergies Coded Allergies: Uvmiasc-Zti-Mbf Reductase Inhibitor (Verified Allergy, Unknown, 12/21/13) meperidine HCl (Verified Allergy, Unknown, 12/21/13) Home Medications Per MAR from [facility]: Ferrous sulfate 325 mg daily Gabapentin 100 mg QAM Gabapentin 200 mg HS Ocuvite multivitamin daily Vitamin B12 1000 mcg daily Metformin 1000 mg BID Metoprolol succinate 25 mg BID Pradaxa 75 mg BID Tylenol 650 mg Q4 PRN PMH Essential hypertension Right leg wound being followed by wound care Atrial fibrillation, on Pradaxa Diabetes mellitus type 2 Lumbar spinal stenosis Right eye blindness Surgical History None reported Family History Unable to obtain from patient due to decreased LOC As per EMR Negative for diabetes Social History Hx Alcohol Use: No Hx Substance Use: No Hx Tobacco Use: No Smoking Status: Never Smoker Living Arrangement: [facility]) Exam Vital Signs Vital Sign - Last Date Time Temp Pulse Resp B/P Pulse Ox O2 Delivery O2 Flow Rate FiO2 06/04/16 21:48 111 76/41 98 Nasal Cannula 2 06/04/16 18:56 38.7 25 Exam Somnolent, snoring, no acute distress Head atraumatic, normocephalic Pupils equal at about 4mm but poorly reactive to light, sclera anicteric Mucus membranes dry, no oral thrush observed No cervical lymphadenopathy, neck supple, nontender No JVD noted but positioning poor for most proper evaluation Cardiac tones regular rate and rhythm with no murmur appreciated but patient was snoring so difficult to hear Lungs with coarse sounds heard throughout possibly artifact due to her snoring No abdominal tenderness, non-distended, normoactive bowel tones, soft Selby present Radial pulses normal and equivalent bilaterally, dorsalis pedis pulses difficult to appreciate bilaterally No cyanosis, clubbing or edema Prominent lower extremity wounds seen on the right ankle and left heel; R LE with large open wound on medial aspect of the ankle; L LE with wounds in varying stages of healing and a small open lesion on back of her heel Neurological exam could not be performed as patient currently not following commands Lab and Diagnostics Result Diagram: 06/04/16191206/04/161912 X-Rays, CTs and MRIs PROCEDURE: CT ABDOMEN AND PELVIS WITHOUT CONTRAST IMPRESSION: 1. Sludge-filled gallbladder may suggest acalculous cholecystitis. 2. Widespread mesenteric atherosclerosis would suggest background diabetes mellitus and/or hyperparathyroidism. 3. Trace bibasilar mobile pleural effusions are of uncertain etiology. Dictated by: Kaden Turpin M.D. on 06/04/2016 at 21:38 PROCEDURE: CT BRAIN WITHOUT CONTRAST IMPRESSION: No acute intracranial abnormalities. 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 Dictated by: Kaden Turpin M.D. on 06/04/2016 at 19:28 PROCEDURE: X-RAY CHEST ONE VIEW, PORTABLE IMPRESSION: 1. Cardiomegaly, without acute cardiopulmonary disease. 2. Changes of bilateral shoulder rotator cuff arthropathy. Dictated by: Kaden Turpin M.D. on 06/04/2016 at 19:15 12-lead ECG Rate 128 QTc 467 Irregularly irregular rhythm - atrial fibrillation Assessment & Plan Patient is a 76 year old female with a history of atrial fibrillation and hypertension. She presented to [facility] today via EMS from [facility]. She was noted to have decreased LOC by the staff and was last seen normal about one hour prior to EMS arrival. Reported to have had fever over the last couple of days as well as myalgias. No other known symptoms. Patient meets sepsis criteria and will be admitted for management. 1. Severe sepsis, acute, present on admission. - Criteria met: fever (38.7), tachycardia (131), leukocytosis (27), lactic acid (2.9), and encephalopathy. Precise source unknown but several possible sources including skin (cellulitis), GI (cholecystitis, c. diff or other gastroenteritis), respiratory (influenza, HCAP). - Vancomycin and Zosyn given in ED. Will continue Zosyn and add Flagyl for coverage of possible GI source. Will choose Linezolid for MRSA coverage as patient has CKD stage 2. Hope to refine these soon based on microbiological data. - Blood cultures ordered and pending. - Viral PCR ordered and pending. - MRSA swab ordered and pending. - Stool PCR ordered and pending. - Trending lactic acid and will continue until normal. 2. Acute on chronic iron deficiency anemia, present on admission. - Outpatient labs indicate Hgb 7 on 06/01/16 with orders for transfusion of 2 units PRBC's to be done on 06/05/16. - Baseline hemoglobin appears to be around 9. - Type and cross ordered and pending. - Will plan to transfuse one unit tonight followed by repeat H&H. - Hold one additional unit for future use if needed. 3. Encephalopathy, acute, present on admission. - Likely secondary to sepsis. - Patient noted to have [facility] LOC by [facility] staff. - Treat underlying sepsis. - Recommend bedrest and NPO until more awake. Will reevaluate at that time. - Will likely need physical therapy, swallow evaluation when more stable. 4. Hypotension, acute, present on admission. - Likely secondary to sepsis. - After CT abd/pelvis patient become profoundly hypotensive (70s/50s). - 1.5L IV fluids given in ED; patient fluid responsive. Continue IV NS at 100 ml /hr x 1 bag. Will bolus 500 mL as needed tonight. Re-evaluate need for fluids tomorrow AM. Will not progress to central line placement or pressors per her wishes as stated by HONG (Desean Nielsen). - Treat underlying sepsis. 5. Right lower extremity wound, chronic, present on admission. - Concern for acute cellulitis of that lower extremity with large open wound on medial aspect of the ankle. - As patient became hypotensive after CT will defer further imaging at this time. Consider at least an x-ray of the right lower extremity when patient more stable. - Wound care nursing order placed for further evaluation. 6. Hypomagnesemia, acute, present on admission. - Magnesium sulfate 4 gm given in ED. - Repeat Mg ordered and pending. - Will continue to monitor and replete as needed. 7. Atrial fibrillation, chronic, on anticoagulation. - With RVR in ED. Diltiazem given IV x1 given prior to admission in ED followed by drop in BP. - Currently appears rate controlled. Takes metoprolol succinate 25 mg BID for rate control at home. - If heart rate maintains above 110, will plan to use digoxin or amiodarone so as not to drop blood pressure. - On Pradaxa 75 mg BID for anticoagulation. Will not continue while patient appears more acutely anemic in case of bleeding. - Could consider use of Lovenox if patient remains encephalopathic and has not additional evidence of bleeding. 8. Type 2 diabetes mellitus, chronic, uncontrolled. - A1c 8.1 on 04/26/16. - Home regimen includes only metformin 1000 mg BID. Will not be continued at this time. - Low dose correction scale to be used as needed. 9. Chronic kidney disease stage 2, presume stable. - Baseline creatinine appears to be around 1.1. - BUN/Cr ratio does appear to be indicative of prerenal azotemia. - Will continue IV hydration as above in #4. - Avoid nephrotoxic medications where possible. 10. Code status: - HONG Nielsen (nephew). He can be reached at [phone]. - Patient also has a sister who will be present and available tomorrow AM. - Patient is DNR/DNI. She does not wish to be kept alive with machines or pressors. She does not want placement of central lines. She would like antibiotics and fluids as well as comfort care. - Family wishes to be kept up to date and informed about patient status. Went home to sleep tonight but will be returning tomorrow AM. - Bowel regimen available PRN. - Antiemetic available PRN. - Antacid available PRN. - Tylenol available PRN mild pain, fever greater than 39.0. - Dilaudid 0.5 mg available PRN Q4 for moderate pain. Patient admitted under inpatient status with expected length of stay greater than 2 midnights for severity of present symptoms, complexities of treatment plan and risk for adverse events. PCP MD Shanita Davis MD caring for patient at [facility] GI Prophylaxis: Not indicated VTE Prophylaxis Indicated: Contraindicated (Worsening anemia, possible bleed) Resuscitation Status: DNR/DNI:Do Not Resuscitate/Intubate Attending Statement The patient was seen and examined together with house staff on 06/04/2016 and I agree with the history, exam and plan as outlined in the note above. copies to: Evangelista Voss MD; Shanita Estrada MD, Jennifer E DO Jun 04, 2016 22:49 Eliz Farrar DO Jun 05, 2016 03:18
--- NOTE | 2016-06-05 00:54 | NUR ---
Admit/Wounds/Blood Patient admitted from ED to room 2030. Patient is obtunded and unable to answer any questions. Large open wound with purulent drainage noted on patient's right lower leg; wound covered and dressed with non-adherent gauze and ABD pad and wrapped with kerlix. Multiple additional wounds noted on both right and left legs. Open sores noted on patient's coccyx and buttocks; mepilex in place over coccyx. Patient hypotensive with SBP in the 80s. Patient to receive blood transfusion; blood transfusion discussed with patient's family per Dr. Morocho. First unit initiated at 0050. Continue close monitoring.
[2016-06-05] MEDS ORDERED: Insulin Human REGular 300 Unit/3 mL Inj SUBQ SCH (02:30)
[2016-06-05] MEDS ORDERED: metroNIDAZOLE Inj 500 MG in IV Premix 1 EACH IV SCH (02:30)
[2016-06-05] MEDS ORDERED: 0.9% Sodium Chloride 500 ML IV ONE (04:05)
[2016-06-05 04:09] LABS: BASOPHILS % (AUTO) 0.1 % (0-3); EOSINOPHILS % (AUTO) 0 % (0-5); MONOCYTES % (AUTO) 4.9 % (4-12); Mean Corpuscular Hemoglobin 26.5 pg (27.0-35.0); Mean Corpuscular Volume 87.4 fL (81-100); NEUTROPHILS % (AUTO) 92.6 % (40-74); Platelet Count 277 bil/L (150-400)
[2016-06-05 04:25] LABS: Phosphorus 3.3 mg/dL (2.5-4.9)
[2016-06-05] MEDS ORDERED: Piperacillin-Tazo 3.375 Gm Inj 3.375 GM in Dextrose 5% Minibag Plus 50 ML IV SCH (05:00)
[2016-06-05] MEDS ORDERED: LORazepam 2 mg/mL Inj ANXIETY/AGIT IVPUSH PRN (06:10)
--- NOTE | 2016-06-05 06:33 | NUR ---
Comfort Care Post-transfusion patient's labs have not remarkably improved and BP still in the 70s systolic after brief rise to the 80s systolic. Discussed with Dr. Morocho. Patient unresponsive to stimuli; 50mL urine output from ann in entire shift. Dr. Morocho spoke with family at 0600 and decision made to transition patient to comfort care. Tele d/c'd, IV fluids d/c'd. Continue to monitor.
[2016-06-05] MEDS ORDERED: FERR-83 PO (07:58)
[2016-06-05] MEDS ORDERED: ACET325T51 PO (07:58)
[2016-06-05] MEDS ORDERED: GABA-500 PO ×2 (07:58)
[2016-06-05] MEDS ORDERED: METF-778 PO (07:58)
[2016-06-05] MEDS ORDERED: Linezolid Inj 600 MG in IV Premix 1 EACH IV SCH (08:30)
--- NOTE | 2016-06-05 12:30 | PCM.PNMED ---
Subjective Date of Service Jun 05, 2016 Subjective Patient is a 76 year old female with a history of atrial fibrillation and hypertension. She presented to [facility] today via EMS from [facility]. Patient is admitted for treatment of sepsis, due to continued decline per patient and family wishes patient has been placed on comfort care. Patient's nephew and DPOA, Desean Nielsen. He stated that the patient is DNR/DNI, she would not want pressors, central lines or other machines to keep her alive. Today: Patient is examined with family present in room, patient is sedated and pain controlled with morphine IV pushes. Goals of care discussed with family and DOPA. At this time family stated they no longer wish for fluid and antibiotic therapy to be resumed. ROS unobtainable due to patient sedation. Exam Vital Signs Vital Sign - Last Date Time Temp Pulse Resp B/P Pulse Ox O2 Delivery O2 Flow Rate FiO2 06/05/16 05:46 36.0 66 24 78/46 100 Nasal Cannula 2.00 Intake and Output 06/04/16 06/04/16 06/05/16 Cumulative From/Thru 15:00 23:00 07:00 06/04/16 20:05 - 06/05/16 06:42 Intake Total 1500 ml 1885 ml 3385 ml Output Total 50 ml 50 ml Balance 1500 ml 1835 ml 3335 ml Intake Oral 0 ml 0 ml IV Total 1500 ml 1535 ml 3035 ml Packed Cells 350 ml 350 ml Output Urine Total 50 ml 50 ml Exam General: sedated, No Acute Distress Head: Normocephalic, atraumatic Eyes: pinpoint, non reactive, sclera anicteric. ENT: Mucous Membranes dry/[place], neck supple, non tender, no JVD Chest & Lungs: Coarse sounds heard throughout all lung connell, Cardiovascular: Regular Rate/Rhythm, Normal S1, Normal S2, No Murmurs/Rubs/ Gallops Abdomen: Non-tender, Non-distended, No masses, Normoactive bowel tones, Soft Extremities: Radial pulses deminished bilaterally, dorsalis pedis pulses difficult to appreciate bilaterally No cyanosis/clubbing/edema bilaterally. Prominent lower extremity wounds seen on the right ankle and left heel; R LE with large open wound on medial aspect of the ankle; L LE with wounds in varying stages of healing and a small open lesion on back of her heel Neurological: Neurological exam could not be performed as patient currently not following commands :Selby in place draining small amount of urine IVs and Medications Medications Reviewed: Medications were reviewed in detail Lab and Diagnostics Result Diagram: 06/05/1634406/05/16344 X-Rays, CTs and MRIs PROCEDURE: CT ABDOMEN AND PELVIS WITHOUT CONTRAST IMPRESSION: 1. Sludge-filled gallbladder may suggest acalculous cholecystitis. 2. Widespread mesenteric atherosclerosis would suggest background diabetes mellitus and/or hyperparathyroidism. 3. Trace bibasilar mobile pleural effusions are of uncertain etiology. Dictated by: Kaden Turpin M.D. on 06/04/2016 at 21:38 PROCEDURE: CT BRAIN WITHOUT CONTRAST IMPRESSION: No acute intracranial abnormalities. 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 Dictated by: Kaden Turpin M.D. on 06/04/2016 at 19:28 PROCEDURE: X-RAY CHEST ONE VIEW, PORTABLE IMPRESSION: 1. Cardiomegaly, without acute cardiopulmonary disease. 2. Changes of bilateral shoulder rotator cuff arthropathy. Dictated by: Kaden Turpin M.D. on 06/04/2016 at 19:15 12-lead ECG Rate 128 QTc 467 Irregularly irregular rhythm - atrial fibrillation Assessment & Plan Patient is a 76 year old female with a history of atrial fibrillation and hypertension. She presented to [facility] today via EMS from [facility]. She was noted to have decreased LOC by the staff and was last seen normal about one hour prior to EMS arrival. Reported to have had fever over the last couple of days as well as myalgias. No other known symptoms. Patient meets sepsis criteria and will be admitted for comfort care. 1. Comfort Care, ongoing - All medical treatments will be discontinued per family wishes and comfort care is started - Continue comfort care orders per protocol - Discussed with DOPA and family of patient - Discontinue monitoring and labs 2. Severe sepsis, acute, present on admission. - Criteria met: fever (38.7), tachycardia (131), leukocytosis (27), lactic acid (2.9), and encephalopathy. Precise source unknown but several possible sources including skin (cellulitis), GI (cholecystitis, c. diff or other gastroenteritis), respiratory (influenza, HCAP). - Discontinue Vancomycin and Zosyn per family wishes - Blood cultures ordered positive for Staph A - Viral PCR ordered and pending. - MRSA swab ordered and pending. - Stool PCR ordered and pending. 2. Acute on chronic iron deficiency anemia, present on admission. - Outpatient labs indicate Hgb 7 on 06/01/16 with orders for transfusion of 2 units PRBC's to be done on 06/05/16. - Baseline hemoglobin appears to be around 9. - Type and cross ordered and pending. - Hold all transfusion 3. Encephalopathy, acute, present on admission. - Likely secondary to sepsis. - Patient noted to have altered LOC by longterm staff. - Discontinue treatment of underlying sepsis. 4. Hypotension, acute, present on admission. - Likely secondary to sepsis. - After CT abd/pelvis patient become profoundly hypotensive (70s/50s). - Discontinue all fluids and treatment of sepsis 5. Right lower extremity wound, chronic, present on admission. - Concern for acute cellulitis of that lower extremity with large open wound on medial aspect of the ankle. - As patient became hypotensive after CT will defer further imaging at this time. Consider at least an x-ray of the right lower extremity when patient more stable. - Discontinue further treatment 6. Hypomagnesemia, acute, present on admission. - Magnesium sulfate 4 gm given in ED. - Discontinue further monitoring and treatment 7. Atrial fibrillation, chronic, on anticoagulation. - With RVR in ED. Diltiazem given IV x1 given prior to admission in ED followed by drop in BP. - Discontinue further monitoring and treatment 8. Type 2 diabetes mellitus, chronic, uncontrolled. - A1c 8.1 on 04/26/16. - Discontinue further monitoring and treatment 9. Chronic kidney disease stage 2, presume stable. - Baseline creatinine appears to be around 1.1. - BUN/Cr ratio does appear to be indicative of prerenal azotemia. - Discontinue further monitoring and treatment. 10. Code status: - DPOA Desean Nielsen (nephew). He can be reached at [phone]. - Patient also has a sister who will be present and available today. - Patient is DNR/DNI. She does not wish to be kept alive with machines or pressors. She does not want placement of central lines. Per patient's DPOA and family they would like to discontinue antibiotics and fluids. Continue with comfort care. - Family wishes to be kept up to date and informed about patient status. Discussed goals of care with DPOA and family. - Tylenol available PRN mild pain, fever greater than 39.0. - Dilaudid 0.5 mg available PRN Q4 for moderate pain. Disposition: Comfort care. PCP MD Shanita Davis MD caring for patient at [facility] GI Prophylaxis: Not indicated Resuscitation Status: DNR/DNI:Do Not Resuscitate/Intubate Attending Statement patient seen and examined with Dr Padilla .I agree with the history,exam, impression and plan as outlined above KOBY PADILLA DO Jun 05, 2016 07:15 Michael Claros MD Jun 05, 2016 12:42
--- NOTE | 2016-06-05 15:09 | NUR ---
Social work note - Initial Assessment Daisy Nielsen is a 76 yr old admitted for Sepsis - is comfort care at this time. EMR reviewed: Pt has Medicare and [employer]. Her PCP is Dr Voss. Natacha score is not available. See attached CM initial assessment. METEOROLOGICAL OBSERVER met with pt's sister and nephew HONG Nielsen [phone]. Family has determined that pt is DNR/I and have spoken with MD about stopping antibiotics, fluids and making her comfortable. Pt receiving pain control meds. MD identifies that pt will likely pass away in the hospital. METEOROLOGICAL OBSERVER spoke with [facility] - Pt is a rehab patient at [facility]. Provided access and update about comfort care. METEOROLOGICAL OBSERVER discussed possible return to [facility] if pt becomes more stable. Family understand and METEOROLOGICAL OBSERVER will continue to follow. Plan: likely pass in the hospital - comfort care only. ZOE Gillette Addendum: 06/05/16 at 1514 by DAPHNE HIDALGO Amended: Links added.
--- NOTE | 2016-06-05 18:43 | NUR ---
Comfort Care Pt. has been on comfort care since this morning. Q2 turns where performed throughout this shift. Pt. is nonverbal to stimuli but reacts to pain per report. Pt. RR 22-28 this evening and increased since this morning. I gave PRN morphine at 0840, 1509, 1623, and 1749, made aware. Pt is in bed resting comfortably at this time with family at bedside.
[2016-06-06] VITALS (8 sets, daily range): BP systolic 91–95; BP diastolic 58–62; PULSE 70–110; RESP 20–24; O2SAT 97–99
--- NOTE | 2016-06-06 03:36 | NUR ---
Comfort Care Patient continues to be unresponsive, comfort measures in place. Respiratory rate between 18-22 breaths per minute. Labored, snoring respirations earlier in the evening have been replaced with shallow, quiet breaths. Turning and repositioning for comfort; patient does groan and grimace with movement. Continue close monitoring.
--- NOTE | 2016-06-06 12:30 | NUR ---
Transfer Pt. was transferred to [facility] [place] 247 from room [facility]. I gave Pt. PRN morphine at ~1010 for increasing respirations. Pt. was taken in bed with all her belongings and her family was notified of the movement. Pt. appeared in no distress during the transfer and arrival to [facility] [place] [facility]. Report was given to [facility] RN via phone prior to transfer at ~1100.
--- NOTE | 2016-06-06 12:35 | NUR ---
Arrival to floor Patient now in room 247, vital signs stable, respirations not rapid currently at 20. Family at bedside.
--- NOTE | 2016-06-06 13:31 | PCM.PNMED ---
Subjective Date of Service Jun 06, 2016 Subjective On comfort care. No new events. Looks comfortable on intermittent morphine injection as needed Exam Vital Signs Vital Sign - Last Date Time Temp Pulse Resp B/P Pulse Ox O2 Delivery O2 Flow Rate FiO2 06/06/16 12:56 36.6 92 20 95/62 99 Nasal Cannula 2.00 Intake and Output 06/05/16 06/05/16 06/06/16 Cumulative From/Thru 15:00 23:00 07:00 06/04/16 20:05 - 06/06/16 05:17 Intake Total 19 ml 0 ml 3404 ml Output Total 100 ml 150 ml Balance 19 ml -100 ml 3254 ml Intake Oral 0 ml 0 ml IV Total 19 ml 3054 ml Packed Cells 350 ml Output Urine Total 100 ml 150 ml Exam General: Lethargic, in Acute respiratory Distress. Head: Normocephalic, atraumatic Eyes: pinpoint, non reactive, sclera anicteric. ENT: Mucous Membranes dry/[place], neck supple, non tender, no JVD Chest & Lungs: Coarse sounds heard throughout all lung connell, Cardiovascular: Regular Rate/Rhythm, Normal S1, Normal S2, No Murmurs/Rubs/ Gallops Abdomen: Non-tender, Non-distended, No masses, Normoactive bowel tones, Soft Extremities: Radial pulses deminished bilaterally, dorsalis pedis pulses difficult to appreciate bilaterally No cyanosis/clubbing/edema bilaterally. Prominent lower extremity wounds seen on the right ankle and left heel; R LE with large open wound on medial aspect of the ankle; L LE with wounds in varying stages of healing and a small open lesion on back of her heel Neurological: Neurological exam could not be performed as patient currently not following commands :Selby in place draining small amount of urine IVs and Medications Medications Reviewed: Medications were reviewed in detail Lab and Diagnostics Result Diagram: 06/05/16 0345 06/05/16 034 X-Rays, CTs and MRIs PROCEDURE: CT ABDOMEN AND PELVIS WITHOUT CONTRAST IMPRESSION: 1. Sludge-filled gallbladder may suggest acalculous cholecystitis. 2. Widespread mesenteric atherosclerosis would suggest background diabetes mellitus and/or hyperparathyroidism. 3. Trace bibasilar mobile pleural effusions are of uncertain etiology. Dictated by: Kaden Turpin M.D. on 06/04/2016 at 21:38 PROCEDURE: CT BRAIN WITHOUT CONTRAST IMPRESSION: No acute intracranial abnormalities. 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 Dictated by: Kaden Turpin M.D. on 06/04/2016 at 19:28 PROCEDURE: X-RAY CHEST ONE VIEW, PORTABLE IMPRESSION: 1. Cardiomegaly, without acute cardiopulmonary disease. 2. Changes of bilateral shoulder rotator cuff arthropathy. Dictated by: Kaden Turpin M.D. on 06/04/2016 at 19:15 12-lead ECG Rate 128 QTc 467 Irregularly irregular rhythm - atrial fibrillation Assessment & Plan Patient is a 76 year old female with a history of atrial fibrillation and hypertension. She presented to [facility] today via EMS from [facility]. She was noted to have decreased LOC by the staff and was last seen normal about one hour prior to EMS arrival. Reported to have had fever over the last couple of days as well as myalgias. No other known symptoms. Patient meets sepsis criteria and will be admitted for comfort care. 1. Comfort Care, ongoing - All medical treatments discontinued per family wishes and comfort care is started on 06/05 - Continue comfort care orders per protocol - Discussed with DOPA and family of patient - Discontinue monitoring and labs 2. Severe sepsis/Staphylococcus bacteremia, acute, present on admission. - Criteria met: fever (38.7), tachycardia (131), leukocytosis (27), lactic acid (2.9), and encephalopathy. Precise source unknown but several possible sources including skin (cellulitis), GI (cholecystitis, c. diff or other gastroenteritis), respiratory (influenza, HCAP). - Discontinue Vancomycin and Zosyn per family wishes - Blood cultures ordered positive for Staph A 2. Acute on chronic iron deficiency anemia, present on admission. - Outpatient labs indicate Hgb 7 on 06/01/16 with orders for transfusion of 2 units PRBC's to be done on 06/05/16. - Baseline hemoglobin appears to be around 9. - Hold all transfusion 3. Encephalopathy, acute, present on admission. - Likely secondary to sepsis. - Patient noted to have altered LOC by intermediate staff. - Discontinue treatment of underlying sepsis. 4. Hypotension, acute, present on admission. - Likely secondary to sepsis. - After CT abd/pelvis patient become profoundly hypotensive (70s/50s). - Discontinue all fluids and treatment of sepsis 5. Right lower extremity wound, chronic, present on admission. - Concern for acute cellulitis of that lower extremity with large open wound on medial aspect of the ankle. - As patient became hypotensive after CT will defer further imaging at this time. Consider at least an x-ray of the right lower extremity when patient more stable. - Discontinue further treatment 6. Hypomagnesemia, acute, present on admission. - Magnesium sulfate 4 gm given in ED. - Discontinue further monitoring and treatment 7. Atrial fibrillation, chronic, on anticoagulation. - With RVR in ED. Diltiazem given IV x1 given prior to admission in ED followed by drop in BP. - Discontinue further monitoring and treatment 8. Type 2 diabetes mellitus, chronic, uncontrolled. - A1c 8.1 on 04/26/16. - Discontinue further monitoring and treatment 9. Chronic kidney disease stage 2, presume stable. - Baseline creatinine appears to be around 1.1. - BUN/Cr ratio does appear to be indicative of prerenal azotemia. - Discontinue further monitoring and treatment. 10. Code status: - DPOA Desean Nielsen (nephew). He can be reached at [phone]. - Patient also has a sister who will be present and available today. - Patient is DNR/DNI. She does not wish to be kept alive with machines or pressors. She does not want placement of central lines. Per patient's DPOA and family they would like to discontinue antibiotics and fluids. Continue with comfort care. - Family wishes to be kept up to date and informed about patient status. Discussed goals of care with DPOA and family. - Tylenol available PRN mild pain, fever greater than 39.0. - Dilaudid 0.5 mg available PRN Q4 for moderate pain. Disposition: Comfort care. Anticipate patient may in the hospital in 24- 48 hours. Will reassess and plan disposition PCP MD Shanita Davis MD caring for patient at [facility] GI Prophylaxis: Not indicated Resuscitation Status: DNR/DNI:Do Not Resuscitate/Intubate Michael Claros MD Jun 06, 2016 13:31
--- NOTE | 2016-06-06 15:38 | NUR ---
Patient transferred to [facility] from [facility]
--- NOTE | 2016-06-06 17:45 | NUR ---
Comfort Care/Vitals Patient was turned onto right side for comfort measures and to relieve pressure off coccyx; respirations were checked after turning to account for any distress, but respirations remained at 20. Patient does not appear to be in any apparent distress, patient did not groan/grimace or otherwise make any complaint behavior when turned. Pulse was variable (only checked pulse and sat at this time), as it would start at 86, then move up to the 90's, then would get up as high as 144, but would come back down.
[2016-06-07] VITALS (9 sets, daily range): BP systolic 99; BP diastolic 61; PULSE 65–120; RESP 18–22; O2SAT 96–97
--- NOTE | 2016-06-07 02:29 | NUR ---
COMFORT CARE Vital signs throughout shift: respirations remained at 20 on 2L satting 97%, pulse varied from as low as 38 to 140s, continuously fluctuating according to the pulse oximeter. Pt appears to be in no distress. Breaths are regular, shallow, and pt has heavier breaths and snores when care is given, but no change in rate. Mouth care given PRN. Continuing to assess for pain and SOB.
[2016-06-07] MEDS: Atropine 1% 5 mL Ophthalmic Solution PO PRN ×2 (06:04→18:30)
--- NOTE | 2016-06-07 09:42 | NUR ---
Wound Care [facility] Order received for wound evaluation on 06/04/15. Patient has now transitioned to comfort care only with all medical treatments discontinued. No wound care evaluation performed.
--- NOTE | 2016-06-07 12:27 | PCM.DIMED ---
Discharge Instructions Date of Service Jun 07, 2016 Dates of Hospitalization Jun 04, 2016 at 23:20 Discharge Diagnosis Discharge Diagnosis Sepsis, end of life Diet No restrictions Activity No restrictions Patient Instructions Follow-up plan None, patient expected to in the next few days taking anything by mouth Martin Brunson MD Jun 07, 2016 12:27
[2016-06-07] MEDS ORDERED: SCOP1PAT TD (12:36)
[2016-06-07] MEDS ORDERED: MORP100S5 PO (12:36)
[2016-06-07] MEDS ORDERED: BISA10SU61 RC (12:36)
[2016-06-07] MEDS ORDERED: LORA2ORA4 PO (12:36)
[2016-06-07] MEDS ORDERED: ATRO2DRO4 ORAL (12:37)
--- NOTE | 2016-06-07 12:38 | PCM.DC.MED ---
Discharge Summary Date of Service Jun 07, 2016 Dates of Hospitalization Date of Hospital Admission Jun 04, 2016 at 23:20 Date of Discharge: Jun 07, 2016 Providers: Admitting Physician: Eliz Farrar DO Primary Care Physician: Evangelista Voss MD Attending Physician: Eliz Farrar DO Diagnosis at Time of Discharge Diagnosis at Time of Discharge Sepsis, end of life Consultations None Procedures XRay, CTs & MRIs PROCEDURE: CT ABDOMEN AND PELVIS WITHOUT CONTRAST IMPRESSION: 1. Sludge-filled gallbladder may suggest acalculous cholecystitis. 2. Widespread mesenteric atherosclerosis would suggest background diabetes mellitus and/or hyperparathyroidism. 3. Trace bibasilar mobile pleural effusions are of uncertain etiology. Dictated by: Kaden Turpin M.D. on 06/04/2016 at 21:38 PROCEDURE: CT BRAIN WITHOUT CONTRAST IMPRESSION: No acute intracranial abnormalities. 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 Dictated by: Kaden Turpin M.D. on 06/04/2016 at 19:28 PROCEDURE: X-RAY CHEST ONE VIEW, PORTABLE IMPRESSION: 1. Cardiomegaly, without acute cardiopulmonary disease. 2. Changes of bilateral shoulder rotator cuff arthropathy. Dictated by: Kaden Turpin M.D. on 06/04/2016 at 19:15 ECG 12 Lead Rate 128 QTc 467 Irregularly irregular rhythm - atrial fibrillation Brief History Patient is a 76 year old female with a history of atrial fibrillation and hypertension. She presented to [facility] today via EMS from [facility]. She was noted to have decreased LOC by the staff and was last seen normal about one hour prior to EMS being called. Per ED note patient had emesis and was incontinent in the ambulance. No ROS has been obtained from patient. Nursing staff in the ED report skin breakdown on coccyx and perianal area. Nursing notes from [facility] reviewed. Patient with low grade fever (100.6) first documented around 0800 on 06/03/16. Highest documented temperature seen was 102.6 at 0800 on 06/04/16. No reported cough, sore throat, congestion, swollen glands. Generalized aching pains reported. Perhaps some increased drainage from her right lower extremity noted. In the ED the patient had temperature of 38.7, heart rate 131, respiratory rate 25, blood pressure 120/58, and O2 saturation of 98% on 2L via nasal cannula. Labs were remarkable for WBC 27, Hgb 7.7, sodium 132, creatinine 1.01, blood glucose 283, magnesium 1.1, and lactic acid 2.9. IV antibiotics begun in the ED. Magnesium replaced. Obtained CT abd/pelvis to assess for sources of infection. After CT, patient became hypotensive and IV fluid levels increased. Dr. Madrigal was able to speak with the patient's nephew and DPOA, Desean Nielsen. He told her that the patient is DNR/DNI and wishes to receive medications like antibiotics and to be kept comfortable. She would not want pressors, central lines or other machines to keep her alive. Hospital Course Patient is a 76 year old female with a history of atrial fibrillation and hypertension. [facility] from [facility]. She was noted to have decreased LOC by the staff and was last seen normal about one hour prior to EMS arrival. Reported to have had fever over the last couple of days as well as myalgias. No other known symptoms. Patient meets sepsis criteria and will be admitted for comfort care. It was determined the patient was not going to as quickly as follow-up. She received vigorous treatment initially in the emergency room. So she is being discharged back to [facility] 06/07. 1. Comfort Care, ongoing-discharging back to [facility] 06/07 on comfort care - All medical treatments discontinued per family wishes and comfort care is started on 06/05 - Continue comfort care orders per protocol - Discussed with DOPA and family of patient - Discontinue monitoring and labs 2. Severe sepsis/Staphylococcus bacteremia, acute, present on admission. - Criteria met: fever (38.7), tachycardia (131), leukocytosis (27), lactic acid (2.9), and encephalopathy. Precise source unknown but several possible sources including skin (cellulitis), GI (cholecystitis, c. diff or other gastroenteritis), respiratory (influenza, HCAP). - Discontinue Vancomycin and Zosyn per family wishes - Blood cultures ordered positive for Staph A 2. Acute on chronic iron deficiency anemia, present on admission. - Outpatient labs indicate Hgb 7 on 06/01/16 with orders for transfusion of 2 units PRBC's to be done on 06/05/16. - Baseline hemoglobin appears to be around 9. - Hold all transfusion 3. Encephalopathy, acute, present on admission. - Likely secondary to sepsis. - [facility] noted to [facility]. - Discontinue treatment of underlying sepsis. 4. Hypotension, acute, present on admission. - Likely secondary to sepsis. - After CT abd/pelvis patient become profoundly hypotensive (70s/50s). - Discontinue all fluids and treatment of sepsis 5. Right lower extremity wound, chronic, present on admission. - Concern for acute cellulitis of that lower extremity with large open wound on medial aspect of the ankle. - As patient became hypotensive after CT will defer further imaging at this time. Consider at least an x-ray of the right lower extremity when patient more stable. - Discontinue further treatment 6. Hypomagnesemia, acute, present on admission. - Magnesium sulfate 4 gm given in ED. - Discontinue further monitoring and treatment 7. Atrial fibrillation, chronic, on anticoagulation. - With RVR in ED. Diltiazem given IV x1 given prior to admission in ED followed by drop in BP. - Discontinue further monitoring and treatment 8. Type 2 diabetes mellitus, chronic, uncontrolled. - A1c 8.1 on 04/26/16. - Discontinue further monitoring and treatment 9. Chronic kidney disease stage 2, presume stable. - Baseline creatinine appears to be around 1.1. - BUN/Cr ratio does appear to be indicative of prerenal azotemia. - Discontinue further monitoring and treatment. 10. Code status: - DPOA Desean Nielsen (nephew). He can be reached at [phone]. - Patient also has a sister who will be present and available today. - Patient is DNR/DNI. She does not wish to be kept alive with machines or pressors. She does not want placement of central lines. Per patient's DPOA and family they would like to discontinue antibiotics and fluids. Continue with comfort care. - Family wishes to be kept up to date and informed about patient status. Discussed goals of care with DPOA and family. - Tylenol available PRN mild pain, fever greater than 39.0. - Dilaudid 0.5 mg available PRN Q4 for moderate pain. Disposition: Comfort care. Anticipate patient may in the hospital in 24- 48 hours. Will reassess and plan disposition PCP MD Shanita Davis MD caring for patient at [facility] Exam Vital Signs (Last) Date Time Temp Pulse Resp B/P Pulse Ox O2 Delivery O2 Flow Rate FiO2 06/07/16 12:34 100 20 96 Nasal Cannula 2.00 06/06/16 19:41 37.0 91/58 Test 06/04/16 18:54 06/04/16 19:13 06/04/16 19:56 06/05/16 03:45 Urine Color Yellow (YELLOW) Urine Appearance Hazy (CLEAR,HAZY) Urine pH 5.0 (5.0-8.0) Urine Specific [place] 1.028 (1.003-1.035) Urine Protein 100mg/dL (NEG,TRACE) Urine Glucose (UA) Negativemg/dL (NEGATIVE) Urine Ketones Tracemg/dL (NEGATIVE) Urine Occult Blood Small (NEGATIVE) Urine Nitrite Negative (NEGATIVE) Urine Bilirubin Negative (NEGATIVE) Urine Urobilinogen Normalmg/dL (NORMAL) Urine Leukocyte Esterase Negative (NEGATIVE) Urine RBC 0-2/hpf (0-2) Urine WBC 0-5/hpf (0-5) Urine Epithelial Cells None/hpf (NONE-MOD) Urine Crystals Amorphous urates (NONE Urine Bacteria Few/hpf (NONE-FEW) Urine Hyaline Casts None/lpf (NONE) Urine Granular Casts None seen (NONE SEEN) Urine Waxy Casts None seen (NONE SEEN) Urine Red Blood Cell Casts None seen (NONE SEEN) Urine White Blood Cell Casts None seen (NONE SEEN) Urine Mucus None seen (None Seen) Urine Trichomonas None seen (NONE SEEN) Urine Yeast None (NONE SEEN) Urinalysis Comment None Urine Culture Reflexed Not indicated Total Bilirubin 0.7mg/dL (0.0-1.2) Aspartate Amino Transf (AST/SGOT) 12U/L (0-50) Alanine Aminotransferase (ALT/SGPT) 5U/L (0-32) Alkaline Phosphatase 71U/L (25-165) Total Protein 6.8g/dL (6.4-8.4) Albumin 2.8g/dL (3.4-5.0) Procalcitonin 1.16ng/mL (0.00-0.08) Hold Urine Received (Received) White Blood Count 36.1th/mm3 (3.8-10.1) Red Blood Count 2.94mil/mm3 (3.90-5.20) Hemoglobin 7.8g/dL (12.0-15.6) Hematocrit 25.7% (35.0-46.0) Mean Corpuscular Volume 87.4fL (81-100) Mean Corpuscular Hemoglobin 26.5pg (27.0-35.0) Mean Corpuscular Hemoglobin Concent 30.4% (32.0-37.0) Red Cell Distribution Width 16.5% (12.3-15.4) Platelet Count 277bil/L (150-400) Neutrophils (%) (Auto) 92.6% (40-74) Lymphocytes (%) (Auto) 1.6% (14-46) Monocytes (%) (Auto) 4.9% (4-12) Eosinophils (%) (Auto) 0% (0-5) Basophils (%) (Auto) 0.1% (0-3) Sodium Level 132mEq/L (134-144) Potassium Level 4.1mEq/L (3.5-5.2) Chloride Level 97mEq/L (97-108) Carbon Dioxide Level 17mmol/L (18-29) Blood Urea Nitrogen 30mg/dL (8-27) Creatinine 1.19mg/dL (0.57-1.00) Estimat Glomerular Filtration Rate 63mL/min (>59) Glucose Level 339mg/dL (60-99) Lactic Acid Level 2.2mmol/L (0.4-2.0) Calcium Level 8.5mg/dL (8.5-10.1) Phosphorus Level 3.3mg/dL (2.5-4.9) Magnesium Level 2.0mg/dL (1.6-2.6) Troponin T 0.756ug/L (0.0-0.011) Discharge Medications Discharge Medications Scopolamine (Transderm-Scop) 1 Each Patch.td72 1 EACH TD Q2DAY Prescribed by: DAVID PEDROZA MD As needed Atropine 1% Ophthalmic Drops (Atropine 1% Ophthalmic Drops) 1 % Drops 1-4 DROP ORAL QID PRN PRN Secretion Control Prescribed by: DAVID PEDROZA MD Bisacodyl (Dulcolax Rectal) 10 Mg Supp.rect 10 MG RC DAILY PRN PRN For Constipation Prescribed by: DAVID PEDROZA MD Lorazepam (Lorazepam Oral Concentrate) 2 Mg/1 Ml Oral.conc 0.25-2 MG PO TID PRN PRN For Anxiety Prescribed by: DAVID PEDROZA MD Morphine Sulfate Oral Concentrate (Roxanol Oral Concentrate) 100 Mg/5 Ml (20 Mg/ Ml) Solution 0 PO 5XD PRN PRN For Agitation Prescribed by: DAVID PEDROZA MD Followup Plan Disposition: Alicja Greenberg on comfort care Follow-up plan None, patient expected to in the next few days taking anything by mouth Discharge Diet: No restrictions Discharge Activity: No restrictions Patient Instructions Patient expected to in the next few days she is not eating or drinking. Very doing comfort care medications only Time spent Greater than 30 minutes copies to: Evangelista Voss MD, Andris E MD Jun 07, 2016 12:38
--- NOTE | 2016-06-07 13:44 | NUR ---
Social Work Readiness for Discharge: Patient from [facility] and plans to return at discharge. SW spoke to [facility] rep Rebeca who states that patient accepted back but no bed available today. Per Rebeca, bed to be available on Tue or . SW spoke to patient ALTHEA Anton, who states that referral to be sent to [facility] for possible review. TAWANNA requested that UR specialist send referral to [facility] for possible consideration. SW to follow. PLAN: Accepted at [facility], pending bed on Tue or . Referral sent to [facility] for possible bed Bjorn LOPEZ
--- NOTE | 2016-06-07 15:29 | NUR ---
[facility] will continue to review once they know what patient's secondary payor would be. Patient has been changed to comfort care and they will need to have a secondary payor. Updated PAID INTERN to talk to family and see if this would be private or [facility]. Addendum: 06/07/16 at 1552 by KALLI GIL PAID INTERN spoke with family and Dora at [facility] and Dora is going to follow up with family regarding finances.
--- NOTE | 2016-06-07 16:41 | NUR ---
Comfort Pt appearing comfortable for most of the day. Did appear to have some facial grimacing and increase in resp. rate after repositioning. She was given IV morphine x2 so far during this shift, with good results. Pt's heart rate fluctuating between 60s up to 110s on monitor, heart rate is quite irregular. Radial pulse counted around 90-110. Oxygen sats are stable on 2L o2 and does not appear to have any respiratory distress. Repositioned for comfort. Oral care and ann care done. Continue to monitor.
[2016-06-08] VITALS (12 sets, daily range): BP systolic 74–84; BP diastolic 50–54; PULSE 78–127; RESP 14–21; O2SAT 95–99
[2016-06-08] MEDS: Atropine 1% 5 mL Ophthalmic Solution PO PRN ×2 (03:57→08:37)
--- NOTE | 2016-06-08 06:27 | NUR ---
Activity Pt has Brice pollard respirations. Apneic periods lasting 10-20 seconds. Pt had verbal groans twice during shift. Pt given IV morphine with good effect. Pt seemed bothered by attempts to moisten mouth/lips and oral care. Low output of Selby, dark marsha (100mL).
--- NOTE | 2016-06-08 10:59 | NUR ---
Low BP and elevated HR Patient is comfort care. BP 74/50, HR 117 ,RR 19, Oxygen 95% 3L. Doctor at bed side and aware. Notified family/ nephew and will be at bed side soon and aware r/t patient condition. Pain assessment, Heart rate and RR every 2 hours. PRN morphine given as ordered for comfort for RR20 and moaning. patient having pernell stroke respirations with apnia 10-15 seconds. family aware. Decreased urine out put from Selby and doctor aware. Bed bath, per care, and oral care this AM. Will continue to monitor comfort, non verbal sign and symptoms of pain, and vitals. per verbal order to discontinue droplet precautions because patient is not coughing.
--- NOTE | 2016-06-08 16:13 | NUR ---
Comfort care Addendum: 06/08/16 at 1616 by LYNDON BALLESTEROS RN Amended: Links added.
--- NOTE | 2016-06-08 16:14 | NUR ---
Social Work Continued Discharge Planning: Sw met with patient's ALTHEA Anton, at bedside to discuss discharge plans. Patient son aware of patient clinical course at this time and wishing patient to pass here as a result to current clinical course. MD aware and believes patient to in less than 24hrs and will be unable to tolerate transport to accepting facility [facility]. SW to follow. Bjorn LOPEZ
--- NOTE | 2016-06-08 16:15 | NUR ---
Comfort Care. Addendum: 06/08/16 at 1616 by LYNDON BALLESTEROS RN Amended: Links added.
--- NOTE | 2016-06-08 16:16 | NUR ---
Comfort care, unresponsive, non Verbal. see note Addendum: 06/08/16 at 1616 by LYNDON BALLESTEROS RN Amended: Links added.
--- NOTE | 2016-06-08 19:03 | PCM.PNMED ---
Subjective Date of Service Jun 08, 2016 Subjective Nonverbal Exam Vital Signs Vital Sign - Last Date Time Temp Pulse Resp B/P Pulse Ox O2 Delivery O2 Flow Rate FiO2 06/08/16 18:16 88 18 99 Nasal Cannula 3.00 06/08/16 15:56 84/54 06/06/16 19:41 37.0 Intake and Output 06/07/16 06/07/16 06/08/16 Cumulative From/Thru 15:00 23:00 07:00 06/04/16 20:05 - 06/08/16 06:19 Intake Total 3404 ml Output Total 150 ml 100 ml 650 ml Balance -150 ml -100 ml 2754 ml Intake Oral 0 ml IV Total 3054 ml Packed Cells 350 ml Output Urine Total 150 ml 100 ml 650 ml Exam Gen.-Heavy female sleeping not arousable Eyes-eyes closed no discharge normal eyelid ENT- ears normal, nose normal Neck- supple/trach midline CVS- RRR no murmur or gallop Lungs- CTA, shallow with apneic periods GI- NABS/NT soft Musc- moving 4 no obvious deformity Neuro- cranial nerves II through XII intact to gross examination, nonfocal Skin- warm and dry, no rashes/lesions/wounds noted Psych-unarousable, Lab and Diagnostics Result Diagram: 06/05/16 0345 06/05/16 0345 X-Rays, CTs and MRIs PROCEDURE: CT ABDOMEN AND PELVIS WITHOUT CONTRAST IMPRESSION: 1. Sludge-filled gallbladder may suggest acalculous cholecystitis. 2. Widespread mesenteric atherosclerosis would suggest background diabetes mellitus and/or hyperparathyroidism. 3. Trace bibasilar mobile pleural effusions are of uncertain etiology. Dictated by: Kaden Turpin M.D. on 06/04/2016 at 21:38 PROCEDURE: CT BRAIN WITHOUT CONTRAST IMPRESSION: No acute intracranial abnormalities. 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 Dictated by: Kaden Turpin M.D. on 06/04/2016 at 19:28 PROCEDURE: X-RAY CHEST ONE VIEW, PORTABLE IMPRESSION: 1. Cardiomegaly, without acute cardiopulmonary disease. 2. Changes of bilateral shoulder rotator cuff arthropathy. Dictated by: Kaden Turpin M.D. on 06/04/2016 at 19:15 12-lead ECG Rate 128 QTc 467 Irregularly irregular rhythm - atrial fibrillation Assessment & Plan Patient is a 76 year old female admit 2/3 transferred from SN[facility] due to decreased LOC last seen normal about one hour prior to EMS arrival. Patient was found to be septic treated vigorously with fluids and antibiotics initially and then when she failed to improve it was elected to make her Comfort Care 06/05. 06/07 initially it seemed that the patient had stable vitals and was being discharged back to [facility] unfortunately they did not have a bed. 06/08 patient's vitals have deteriorated and it now seems that the patient will here in the next 12-24 hours. She is hypotensive, has periods of apnea and is becoming tachycardic. Discharge is canceled due to expected demise. 1. Comfort Care, ongoing-discharging back to [facility] 06/07 on comfort care - All medical treatments discontinued per family wishes and comfort care is started on 06/05 - Continue comfort care orders per protocol - Discussed with DOPA and family of patient - Discontinue monitoring and labs 2. Severe sepsis/Staphylococcus bacteremia, acute, present on admission. No longer treating as of 06/05. - Criteria met: fever (38.7), tachycardia (131), leukocytosis (27), lactic acid (2.9), and encephalopathy. Precise source unknown but several possible sources including skin (cellulitis), GI (cholecystitis, c. diff or other gastroenteritis), respiratory (influenza, HCAP). - Discontinue Vancomycin and Zosyn per family wishes - Blood cultures ordered positive for Staph A 2. Acute on chronic iron deficiency anemia, present on admission. - Outpatient labs indicate Hgb 7 on 06/01/16 with orders for transfusion of 2 units PRBC's to be done on 06/05/16. - Baseline hemoglobin appears to be around 9. - Hold all transfusion 3. Encephalopathy, acute, present on admission. - Likely secondary to sepsis. - Patient noted to have altered LOC by group home staff. - Discontinue treatment of underlying sepsis. 4. Hypotension, acute, present on admission. - Likely secondary to sepsis. - After CT abd/pelvis patient become profoundly hypotensive (70s/50s). - Discontinue all fluids and treatment of sepsis 5. Right lower extremity wound, chronic, present on admission. - Concern for acute cellulitis of that lower extremity with large open wound on medial aspect of the ankle. - As patient became hypotensive after CT will defer further imaging at this time. Consider at least an x-ray of the right lower extremity when patient more stable. - Discontinue further treatment 6. Hypomagnesemia, acute, present on admission. - Magnesium sulfate 4 gm given in ED. - Discontinue further monitoring and treatment 7. Atrial fibrillation, chronic, on anticoagulation. - With RVR in ED. Diltiazem given IV x1 given prior to admission in ED followed by drop in BP. - Discontinue further monitoring and treatment 8. Type 2 diabetes mellitus, chronic, uncontrolled. - A1c 8.1 on 04/26/16. - Discontinue further monitoring and treatment 9. Chronic kidney disease stage 2, presume stable. - Baseline creatinine appears to be around 1.1. - BUN/Cr ratio does appear to be indicative of prerenal azotemia. - Discontinue further monitoring and treatment. 10. Code status: - DPOA Desean Nielsen (nephew). He can be reached at [phone]. - Patient also has a sister who will be present and available today. - Patient is DNR/DNI. She does not wish to be kept alive with machines or pressors. She does not want placement of central lines. Per patient's DPOA and family they would like to discontinue antibiotics and fluids. Continue with comfort care. - Family wishes to be kept up to date and informed about patient status. Discussed goals of care with DPOA and family. - Tylenol available PRN mild pain, fever greater than 39.0. - Dilaudid 0.5 mg available PRN Q4 for moderate pain. Disposition: Comfort care. Anticipate patient may in the hospital in 24- 48 hours. Will reassess and plan disposition PCP MD Shanita Davis MD caring for patient at [facility] GI Prophylaxis: Not indicated Resuscitation Status: DNR/DNI:Do Not Resuscitate/Intubate Martin Brunson MD Jun 08, 2016 19:03
[2016-06-09 02:52] VITALS: PULSE 98; RESP 17; O2SAT 99
[2016-06-09 05:10] VITALS: PULSE 90; RESP 16; O2SAT 99
--- NOTE | 2016-06-09 06:10 | NUR ---
Activity Pt HR and RR well controlled this shift. Still continues to have Brice pollard respirations. Oral care difficult du to pt clamping down on oral swab.
[2016-06-09 07:50] VITALS: PULSE 104; RESP 16; O2SAT 94
[2016-06-09 09:50] VITALS: PULSE 99; RESP 20; O2SAT 99
--- NOTE | 2016-06-09 11:25 | NUR ---
Comfort Care Patient seems comfortable with eyes closed. Heart rate 99, RR 20, BP 62/43, Oxygen 99% at 3 Liters. Doctor aware r/t vital signs and verbal orders received to discontinue to oxygen via nasal cannula. Oxygen at room air 91%. Patient resisted to oral care by closing mouth. Turning and repositioning for patient comfort. Will continue to monitor patient for comfort and cares.
--- NOTE | 2016-06-09 12:47 | NUR ---
Moaning patient frequently moaning and dyspnea. Increased gurgling sounds. Called nephew and states," on their way. paged doctor twice and awaiting response. PRN Morphine given as ordered for comfort and dyspnea. cares being provided at this time.
[2016-06-09 13:08] VITALS: PULSE 60; RESP 20; O2SAT 99
--- NOTE | 2016-06-09 16:05 | NUR ---
patient Patient 1408. Notified doctor and aware. Next to Kin and family at bed side. Authorization for release of body form completed filled required connell. [facility] called security.
--- NOTE | 2016-06-09 17:46 | PCM.DC.MED ---
Discharge Summary Date of Service Jun 09, 2016 Dates of Hospitalization Date of Hospital Admission Jun 04, 2016 at 23:20 Date of Discharge: Jun 09, 2016 Providers: Admitting Physician: Eliz Farrar DO Primary Care Physician: Evangelista Voss MD Attending Physician: Eliz Farrar DO Diagnosis at Time of Discharge Diagnosis at Time of Discharge Sepsis, end of life patient 06/09 Consultations None Procedures XRay, CTs & MRIs PROCEDURE: CT ABDOMEN AND PELVIS WITHOUT CONTRAST IMPRESSION: 1. Sludge-filled gallbladder may suggest acalculous cholecystitis. 2. Widespread mesenteric atherosclerosis would suggest background diabetes mellitus and/or hyperparathyroidism. 3. Trace bibasilar mobile pleural effusions are of uncertain etiology. Dictated by: Kaden Turpin M.D. on 06/04/2016 at 21:38 PROCEDURE: CT BRAIN WITHOUT CONTRAST IMPRESSION: No acute intracranial abnormalities. 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 Dictated by: Kaedn Turpin M.D. on 06/04/2016 at 19:28 PROCEDURE: X-RAY CHEST ONE VIEW, PORTABLE IMPRESSION: 1. Cardiomegaly, without acute cardiopulmonary disease. 2. Changes of bilateral shoulder rotator cuff arthropathy. Dictated by: Kaden Turpin M.D. on 06/04/2016 at 19:15 ECG 12 Lead Rate 128 QTc 467 Irregularly irregular rhythm - atrial fibrillation Brief History 76 year old female with a history of atrial fibrillation and hypertension. She presented to [facility] today via EMS from [facility]. She was noted to have decreased LOC by the staff and was last seen normal about one hour prior to EMS being called. Per ED note patient had emesis and was incontinent in the ambulance. No ROS has been obtained from patient. Nursing staff in the ED report skin breakdown on coccyx and perianal area. Nursing notes from [facility] reviewed. Patient with low grade fever (100.6) first documented around 0800 on 06/03/16. Highest documented temperature seen was 102.6 at 0800 on 06/04/16. No reported cough, sore throat, congestion, swollen glands. Generalized aching pains reported. Perhaps some increased drainage from her right lower extremity noted. In the ED the patient had temperature of 38.7, heart rate 131, respiratory rate 25, blood pressure 120/58, and O2 saturation of 98% on 2L via nasal cannula. Labs were remarkable for WBC 27, Hgb 7.7, sodium 132, creatinine 1.01, blood glucose 283, magnesium 1.1, and lactic acid 2.9. IV antibiotics begun in the ED. Magnesium replaced. Obtained CT abd/pelvis to assess for sources of infection. After CT, patient became hypotensive and IV fluid levels increased. Dr. Madrigal was able to speak with the patient's nephew and DPOA, Desean Nielsen. He told her that the patient is DNR/DNI and wishes to receive medications like antibiotics and to be kept comfortable. She would not want pressors, central lines or other machines to keep her alive. Hospital Course 76 year old female admit 2/3 transferred from [facility] due to decreased LOC last seen normal about one hour prior to EMS arrival. Patient was found to be septic treated vigorously with fluids and antibiotics initially and then when she failed to improve it was elected to make her Comfort Care 06/05. 06/07 initially it seemed that the patient had stable vitals and was being discharged back to [facility] unfortunately they did not have a bed. 06/08 patient's vitals have deteriorated and it now seems that the patient will here in the next 12-24 hours. She is hypotensive, has periods of apnea and is becoming tachycardic. Discharge is canceled due to expected demise. 06/09 slowly deteriorated and at 1408 1. Comfort Care, ongoing-discharging back to [facility] 06/07 on comfort care - All medical treatments discontinued per family wishes and comfort care is started on 06/05 - Continue comfort care orders per protocol - Discussed with DOPA and family of patient - Discontinue monitoring and labs 2. Severe sepsis/Staphylococcus bacteremia, acute, present on admission. No longer treating as of 06/05. - Criteria met: fever (38.7), tachycardia (131), leukocytosis (27), lactic acid (2.9), and encephalopathy. Precise source unknown but several possible sources including skin (cellulitis), GI (cholecystitis, c. diff or other gastroenteritis), respiratory (influenza, HCAP). - Discontinue Vancomycin and Zosyn per family wishes - Blood cultures ordered positive for Staph A 2. Acute on chronic iron deficiency anemia, present on admission. - Outpatient labs indicate Hgb 7 on 06/01/16 with orders for transfusion of 2 units PRBC's to be done on 06/05/16. - Baseline hemoglobin appears to be around 9. - Hold all transfusion 3. Encephalopathy, acute, present on admission. - Likely secondary to sepsis. - Patient noted to have altered LOC by longterm staff. - Discontinue treatment of underlying sepsis. 4. Hypotension, acute, present on admission. - Likely secondary to sepsis. - After CT abd/pelvis patient become profoundly hypotensive (70s/50s). - Discontinue all fluids and treatment of sepsis 5. Right lower extremity wound, chronic, present on admission. - Concern for acute cellulitis of that lower extremity with large open wound on medial aspect of the ankle. - As patient became hypotensive after CT will defer further imaging at this time. Consider at least an x-ray of the right lower extremity when patient more stable. - Discontinue further treatment 6. Hypomagnesemia, acute, present on admission. - Magnesium sulfate 4 gm given in ED. - Discontinue further monitoring and treatment 7. Atrial fibrillation, chronic, on anticoagulation. - With RVR in ED. Diltiazem given IV x1 given prior to admission in ED followed by drop in BP. - Discontinue further monitoring and treatment 8. Type 2 diabetes mellitus, chronic, uncontrolled. - A1c 8.1 on 04/26/16. - Discontinue further monitoring and treatment 9. Chronic kidney disease stage 2, presume stable. - Baseline creatinine appears to be around 1.1. - BUN/Cr ratio does appear to be indicative of prerenal azotemia. - Discontinue further monitoring and treatment. 10. Code status: - DPOA Desean Jaradjordon (nephew). He can be reached at [phone]. - Patient also has a sister who will be present and available today. - Patient is DNR/DNI. She does not wish to be kept alive with machines or pressors. She does not want placement of central lines. Per patient's DPOA and family they would like to discontinue antibiotics and fluids. Continue with comfort care. - Family wishes to be kept up to date and informed about patient status. Discussed goals of care with DPOA and family. - Tylenol available PRN mild pain, fever greater than 39.0. - Dilaudid 0.5 mg available PRN Q4 for moderate pain. Disposition: Comfort care. Anticipate patient may in the hospital in 24- 48 hours. Will reassess and plan disposition PCP MD Shanita Davis MD caring for patient at [facility] Exam Vital Signs (Last) Date Time Temp Pulse Resp B/P Pulse Ox O2 Delivery O2 Flow Rate FiO2 06/09/16 13:08 60 20 99 Room Air 06/09/16 09:50 3.00 06/08/16 15:56 84/54 06/06/16 19:41 37.0 Test 06/04/16 18:54 06/04/16 19:13 06/04/16 19:56 06/05/16 03:45 Urine Color Yellow (YELLOW) Urine Appearance Hazy (CLEAR,HAZY) Urine pH 5.0 (5.0-8.0) Urine Specific [place] 1.028 (1.003-1.035) Urine Protein 100mg/dL (NEG,TRACE) Urine Glucose (UA) Negativemg/dL (NEGATIVE) Urine Ketones Tracemg/dL (NEGATIVE) Urine Occult Blood Small (NEGATIVE) Urine Nitrite Negative (NEGATIVE) Urine Bilirubin Negative (NEGATIVE) Urine Urobilinogen Normalmg/dL (NORMAL) Urine Leukocyte Esterase Negative (NEGATIVE) Urine RBC 0-2/hpf (0-2) Urine WBC 0-5/hpf (0-5) Urine Epithelial Cells None/hpf (NONE-MOD) Urine Crystals Amorphous urates (NONE Urine Bacteria Few/hpf (NONE-FEW) Urine Hyaline Casts None/lpf (NONE) Urine Granular Casts None seen (NONE SEEN) Urine Waxy Casts None seen (NONE SEEN) Urine Red Blood Cell Casts None seen (NONE SEEN) Urine White Blood Cell Casts None seen (NONE SEEN) Urine Mucus None seen (None Seen) Urine Trichomonas None seen (NONE SEEN) Urine Yeast None (NONE SEEN) Urinalysis Comment None Urine Culture Reflexed Not indicated Total Bilirubin 0.7mg/dL (0.0-1.2) Aspartate Amino Transf (AST/SGOT) 12U/L (0-50) Alanine Aminotransferase (ALT/SGPT) 5U/L (0-32) Alkaline Phosphatase 71U/L (25-165) Total Protein 6.8g/dL (6.4-8.4) Albumin 2.8g/dL (3.4-5.0) Procalcitonin 1.16ng/mL (0.00-0.08) Hold Urine Received (Received) White Blood Count 36.1th/mm3 (3.8-10.1) Red Blood Count 2.94mil/mm3 (3.90-5.20) Hemoglobin 7.8g/dL (12.0-15.6) Hematocrit 25.7% (35.0-46.0) Mean Corpuscular Volume 87.4fL (81-100) Mean Corpuscular Hemoglobin 26.5pg (27.0-35.0) Mean Corpuscular Hemoglobin Concent 30.4% (32.0-37.0) Red Cell Distribution Width 16.5% (12.3-15.4) Platelet Count 277bil/L (150-400) Neutrophils (%) (Auto) 92.6% (40-74) Lymphocytes (%) (Auto) 1.6% (14-46) Monocytes (%) (Auto) 4.9% (4-12) Eosinophils (%) (Auto) 0% (0-5) Basophils (%) (Auto) 0.1% (0-3) Sodium Level 132mEq/L (134-144) Potassium Level 4.1mEq/L (3.5-5.2) Chloride Level 97mEq/L (97-108) Carbon Dioxide Level 17mmol/L (18-29) Blood Urea Nitrogen 30mg/dL (8-27) Creatinine 1.19mg/dL (0.57-1.00) Estimat Glomerular Filtration Rate 63mL/min (>59) Glucose Level 339mg/dL (60-99) Lactic Acid Level 2.2mmol/L (0.4-2.0) Calcium Level 8.5mg/dL (8.5-10.1) Phosphorus Level 3.3mg/dL (2.5-4.9) Magnesium Level 2.0mg/dL (1.6-2.6) Troponin T 0.756ug/L (0.0-0.011) Discharge Medications Discharge Medications Scopolamine (Transderm-Scop) 1 Each Patch.td72 1 EACH TD Q2DAY Prescribed by: DAVID PEDROZA MD As needed Bisacodyl (Dulcolax Rectal) 10 Mg Supp.rect 10 MG RC DAILY PRN PRN For Constipation Prescribed by: DAVID PEDROZA MD Lorazepam (Lorazepam Oral Concentrate) 2 Mg/1 Ml Oral.conc 0.25-2 MG PO TID PRN PRN For Anxiety Prescribed by: DAVID PEDROZA MD Morphine Sulfate Oral Concentrate (Roxanol Oral Concentrate) 100 Mg/5 Ml (20 Mg/ Ml) Solution 0 PO 5XD PRN PRN For Agitation Prescribed by: DAVID PEDROZA MD Followup Plan Disposition: Patient 06/09 at 1408 Follow-up plan None, patient expected to in the next few days taking anything by mouth Discharge Diet: No restrictions Discharge Activity: No restrictions Patient Instructions Patient expected to in the next few days she is not eating or drinking. Very doing comfort care medications only Time spent Less than 30 minutes Attending Statement The patient was placed on comfort care pathway and in comfort of her head in any distress 06/09 copies to: Evangelista Voss MD, Andris E MD Jun 09, 2016 17:46
== END 2016-06-09 14:08 | disposition expired | DRG 871 ==
LOC: EDBD 18:52 → SED 19:47 → PCC 23:10 → MOC 06-06 10:20
PROVIDERS: ADMIT Internal Medicine; ATTEND Internal Medicine
DX: A41.2 Sepsis due to unspecified staphylococcus (principal); G93.40 Encephalopathy, unspecified; L97.819 Non-pressure chronic ulcer of other part of right lower leg with unspecified severity; L03.116 Cellulitis of left lower limb; L03.115 Cellulitis of right lower limb; D50.9 Iron deficiency anemia, unspecified; R65.20 Severe sepsis without septic shock; I48.2 Chronic atrial fibrillation; E83.42 Hypomagnesemia; E11.65 Type 2 diabetes mellitus with hyperglycemia; I12.9 Hypertensive chronic kidney disease with stage 1 through stage 4 chronic kidney disease, or unspecified chronic kidney disease; N18.2 Chronic kidney disease, stage 2 (mild); Z66 Do not resuscitate; Z51.5 Encounter for palliative care; Z79.01 Long term (current) use of anticoagulants